=== PATIENT | female | born 1955 | race Two or more races ===

== ENCOUNTER → 2016-09-29 | Outpatient (CLI) | payer MEDICARE, MEDICAID ==
[~2016-09-29] MED LIST: ARIP1TAB15 PO; DIPH2.5T16 PO; DULO1CAP3 PO; OXYB5TAB61 OR; TRAZ150T79 PO
[2016-09-29 14:32] LABS: Basophils # (auto) 0 uL; Basophils % (auto) 0.6 % (0.0-2.0); Eosinophils # (auto) 0.1 uL; Hematocrit 43.4 % (36.0-46.0); Hemoglobin 14.1 g/dL (12.2-16.2); Lymphocytes # (auto) 1.9 uL; Lymphocytes % (auto) 29.2 % (10.0-50.0); Mean Corpuscular Hemoglobin 30.7 pg (28.0-32.0); Mean Corpuscular Hgb Conc. 32.5 g/dL (32.0-36.0); Mean Corpuscular Volume 94.4 fL (80.0-100.0); Monocytes # (auto) 0.4 uL; Neutrophils # (auto) 4.1 uL; Neutrophils % (auto) 63.2 % (37.0-80.0); Platelet Count (auto) 342 10^3/uL (140-450); Red Cell Distribution Width 14.4 % (11.6-16.0); White Blood Cell 6.5 10^3/uL (4.4-10.8)
[2016-09-29 14:42] LABS: Urine Bilirubin Negative (Negative); Urine Blood Negative /uL (Negative); Urine Color Yellow (Yellow); Urine Glucose Normal (Normal); Urine Ketone Negative (Negative); Urine Mucus FEW (None Seen); Urine Nitrite Negative (Negative); Urine RBC <1 /hpf (0 - 4); Urine Squamous Epithelial Cell FEW /hpf (<5); Urine Urobilinogen Normal (Negative); Urine pH 5.5 (5.0-8.0)
[2016-09-29 14:51] LABS: INR 0.97 (0.9-1.15); Partial Thromboplastin Time 25.8 sec (22.64-33.71)
[2016-09-29 15:01] LABS: Calcium 8.6 mg/dL (8.5-10.1); Potassium 3.9 mmol/L (3.5-5.1)
== END | disposition home or self-care (01) ==
LOC: LAB 10:27
PROVIDERS: ATTEND Urology
DX: N39.0 Urinary tract infection, site not specified (principal); M79.89 Other specified soft tissue disorders; D53.8 Other specified nutritional anemias; Z01.818 Encounter for other preprocedural examination
CPT/HCPCS: 36415; 80048; 81001; 85025; 85610; 85730; 87086

== ENCOUNTER 2016-10-01 06:11 | Day surgery (SDC) | payer MEDICARE, MEDICAID ==
[~2016-10-01] VITALS: Ht 162.6 cm; Wt 90.7 kg
[2016-10-01] MEDS ORDERED: ONABOTULINUMTOXINA 100 UNIT IM ONE (07:00)
[2016-10-01] MEDS ORDERED: LIDOCAINE 2% JELLY 11ml (GLYDO) ONE (07:03)
[2016-10-01] MEDS ORDERED: DEXAMETHASONE SOD PHOS 10MG/1ML VIAL INJ ONE (07:27)
[2016-10-01] MEDS ORDERED: fentaNYL CITRATE 100 MCG/2 ML VL ONE (07:27)
[2016-10-01] MEDS ORDERED: ONDANSETRON HCL 4 MG/2 ML VIAL ONE (07:27)
[2016-10-01] MEDS ORDERED: GLYCOPYRROLATE 0.2 MG/ML 1ML VIAL ONE (07:27)
[2016-10-01] MEDS ORDERED: KETOROLAC TROMETH 60MG/2ML VIAL IM ONE (07:27)
[2016-10-01] MEDS ORDERED: LIDOCAINE HCL 2 %PF INJ 10ML AMP IJ ONE (07:27)
[2016-10-01] MEDS ORDERED: MIDAZOLAM HCL 1MG/1ML-2 ML VIAL ONE (07:27)
[2016-10-01] MEDS ORDERED: PROPOFOL 10 MG/ML 20 ML IV ONE (07:27)
[2016-10-01] MEDS ORDERED: CIPROFLOXACIN 400MG/200ML 200 ML IV ONE (07:29)
[2016-10-01] MEDS ORDERED: ONDANSETRON HCL 4 MG/2 ML VIAL IV ONE (08:30)
[2016-10-01] MEDS ORDERED: HYDROmorphone HCL 2 MG/ML VL IV PRN (08:30)
[2016-10-01 09:34] VITALS: BP 133/90
== END 2016-10-01 09:34 | disposition home or self-care (01) ==
LOC: SUR 06:11
PROVIDERS: ATTEND Urology
DX: N36.42 Intrinsic sphincter deficiency (ISD) (principal); E66.9 Obesity, unspecified; F17.200 Nicotine dependence, unspecified, uncomplicated
CPT/HCPCS: 52287; J0744; J1100; J1885; J2250; J2405; J2704; J3010; J7030; L8606; J0585

== ENCOUNTER 2024-06-16 12:47 | Emergency (ER) | payer OTHER, MEDICAID ==
[~2024-06-16] VITALS: Ht 144.8 cm; Wt 40.2 kg
[~2024-06-16 12:47] MED LIST changes: -ARIP1TAB15 PO; +ARIP1TAB63 PO; -DIPH2.5T16 PO; -DULO1CAP3 PO; +DULO1CAP6 PO; +OXYB5TAB14 OR; -OXYB5TAB61 OR; -TRAZ150T79 PO; +TRAZ1TAB12 PO; +[UNRECOGNIZED DRUG - CODE] PO
--- NOTE | 2024-06-16 13:37 | DVH ---
EXAM: CT HEAD WITHOUT CONTRAST HISTORY: FALL COMPARISON: None TECHNIQUE: Axial images of the head were obtained and reformatted in coronal and sagittal planes. All CT scans at this medical facility are performed using dose modulation techniques as appropriate t o a performed exam including the following: Automated exposure control was utilized; adjustment of th e MA and/or KV according to patient size; and use of iterative reconstruction technique. CT Dose: CTDI volume is 59.25 mGy. Dose-length product is 949.73 mGy*cm FINDINGS: There is no evidence of acute intracranial hemorrhage, mass, mass effect midline shift. There is no h ydrocephalus or extra-axial fluid collection. There are patchy hypodense areas in the supratentorial white matter likely related to chronic microvascular ischemic changes. Hodges-white matter differentiat ion is maintained.. The visualized paranasal sinuses and mastoid air cells are clear. The calvarium is intact. IMPRESSION: 1. No acute intracranial process. HS:Y
--- NOTE | 2024-06-16 13:40 | ED.PDOC ---
Fina. trauma (HPI) HPI Comments A 69 YEAR OLD FEMALE PRESENTS TO THE ED WITH COMPLAINT OF HEAD INJURY AND LEFT FOOT PAIN STATUS POST FALL. PATIENT'S CAREGIVER STATES THE PATIENT HAS FALLEN 4 TIMES IN THE LAST 2 DAYS DUE TO HER CHRONIC LOWER BACK PAIN CAUSING HER LEGS TO GIVE OUT AND HIT HER HEAD EACH TIME SHE HAS FALLEN. PATIENT'S CAREGIVER REPORTS THE PATIENT ALSO TWISTED HER LEFT FOOT AND IS NOW COMPLAINING OF LEFT FOOT PAIN WITH MILD SWELLING. PATIENT DENIES LOC, NECK INJURY, FEVER, CHILLS, SHORTNESS OF BREATH, CHEST PAIN, ABDOMINAL PAIN, NAUSEA, VOMITING, HEADACHE, OR OTHER COMPLAINTS. NO OTHER SYMPTOMS OR MODIFYING FACTORS AT THIS TIME. PATIENT IS ALERT, ORIENTED X 4, AND HAS STEADY GAIT. Chief Complaint: Fall Injury Time Seen by MD: 12:50 Primary Care Provider: UNKNOWN Reviewed notes: Nurses Notes, Medications, Allergies Allergies: Coded Allergies: NO KNOWN ALLERGIES (Unverified , 09/29/16) Home Meds Reported Medications Diphenoxylate W/ Atropine (Diphenoxylate/Atropine 2.5-0.025 mg) 1 Tab Tab, 1 TAB PO DAILY, TAB 09/29/16 Duloxetine HCl (Duloxetine HCl) 60 Mg Cap, 60 MG PO BID, CAP 09/29/16 Aripiprazole (Aripiprazole) 30 Mg Tab, 30 MG PO DAILY, TAB 09/29/16 Oxybutynin Chloride (Oxybutynin Chloride) 5 Mg Tab, 5 MG OR BID, TAB 09/29/16 Trazodone Hcl (Trazodone Hcl) 150 Mg Tab, 1 TAB PO TID, #30 TAB 1 Refill 09/29/16 Information Source: Patient, Relative (Child) Mode of Arrival: Ambulatory Severity: Moderate Timing: Days Duration: Since onset, Days Prehospital treatment: None Location: (L) Foot, Head Location of laceration: None Mechanism: Fall Associated signs and symtoms: Headache Past Medical History PAST MEDICAL HISTORY: Anxiety, Depression, Schizophrenia Past Medical History (Other): DDD/CHRONIC LOWER BACK PAIN Surgical History (Other): LOW BACK SURGERY SENIOR BI ARCHITECT History: No Pertinent SENIOR BI ARCHITECT History Family History Family History: Reviewed,noncontributory to illness Social History Smoker: Non-Smoker Alcohol: Denies ETOH Use Drugs: Denies Drug Use Lives In: Home Constitutional: denies: chills, diaphoresis, fatigue, fever, malaise, sweats, weakness, others EENTM: denies: blurred vision, double vision, ear bleeding, ear discharge, ear drainage, ear pain, ear ringing, eye pain, eye redness, hearing loss, mouth pain, mouth swelling, nasal discharge, nose bleeding, nose congestion, nose pain, photophobia, tearing, throat pain, throat swelling, voice changes, others Respiratory: denies: cough, hemoptysis, orthopnea, SOB at rest, shortness of breath, SOB with excertion, stridor, wheezing, others Cardiovascular: denies: chest pain, dizzy spells, diaphoresis, Dyspnea on exertion, edema, irregular heart beat, left arm pain, lightheadedness, palpitations, PND, syncope, others Gastrointestinal: denies: abdomen distended, abdominal pain, blood streaked bowels, constipated, diarrhea, dysphagia, difficulty swallowing, hematemesis, melena, nausea, poor appetite, poor fluid intake, rectal bleeding, rectal pain, vomiting, others Genitourinary: denies: abnormal vagina bleeding, burning, dyspareunia, dysuria, flank pain, frequency, hematuria, incontinence, pain, , vagina dischar ge, urgency, others Neurological: reports: headache; denies: dizziness, fainting, left sided numbness, left sided weakness, numbness, paresthesia, pre-existing deficit, right sided numbness, right sided weakness, seizure, speech problems, tingling, tremors, weakness, others Musculoskeletal: reports: back pain (CHRONIC LOWER BACK PAIN), muscle pain, others (LEFT FOOT PAIN WITH MILD SWELLING); denies: gout, joint pain, joint swelling, muscle stiffness, neck pain Integumetry: reports: bruises (LEFT DORSAL FOOT. ); denies: change in color, change in hair/nails, dryness, laceration, lesions, lumps, rash, wounds, others Allergic/Immunocompromised: denies: Difficulty Healing, Frequent Infections, Hives, Itching, others Hematologic/Lymphatic: denies: anemia, blood clots, easy bleeding, easy bruising, swollen glands, others Endocrine: denies: excessive hunger, excessive sweating, excessive thirst, excessive urination, flushing, intolerance to cold, intolerance to heat, unexplained weight gain, unexplained weight loss, others Psychiatric: denies: anxiety, bipolar disorder, depression, hopeless, panic disorder, schizophrenia, sleepless, suicidal, others All Other Systems: Reviewed and Negative Physical Exam General Appearance: No Apparent Distress, Obese HEENT: Head (NO SCALP CONTUSIONS AND HEMATOMAS, NO DEFORMITY OF SCALP. ), Normal ENT Inspection, PERRL/EOMI, Pharynx Normal, TMs Normal Neck: Full Range of Motion, Non-Tender, Normal, Normal Inspection Respiratory: Chest Non-Tender, Lungs Clear, No Accessory Muscle Use, No R espiratory Distress, Normal Breath Sounds Cardiovascular: No Edema, No JVD, No Murmur, No Gallop, Normal Peripheral Pulses, Regular Rate/Rhythm Breast Exam: Deferred Gastrointestinal: No Organomegaly, Non Tender, No Pulsatile Mass, Normal Bowel Sounds, Soft Genitalia: Deferred Pelvic: Deferred Rectal: Deferred Extremities: Decreased range of motion, No calf tenderness, Normal capillary refill, No pedal edema, Swelling (BONY TENDERNESS AND SWELLING ON LEFT DORSAL FOOT, NO DEFORMITY. ), Tender (BONY TENDERNESS AND SWELLING ON LEFT FOOT. ) Musculoskeletal : Location: Bilateral Extremity Location: Back Apperance: Tenderness (NO BONY TENDERNESS, SWELLING AND REDNESS ON LOW BACK, NO DEFORMITY. ) Neurologic: Alert, science job titles II-XII nml as Tested, No Motor Deficits, Normal Affect, Normal Mood, No Sensory Deficits Cerebellar Function: Normal Reflexes: Normal Skin: Bruises (LEFT DORSAL FOOT. ), Dry, Normal Color, Warm Peripheral Pulses: 2+ carotid (R), 2+ carotid (L), 2+ dorsalis pedis (R), 2+ dorsalis pedis (L) Lymphatic: No Adenopathy Was a procedure done? Was a procedure done?: No Differential Diagnosis Multiple Trauma: Closed Head Injury, Fractures, Cerebral Contusion, Abrasions, Contusion, Other (SPRAIN OF LEFT FOOT) Neck Injury: N/A X-Ray, Labs, Meds, VS Vital Signs Date Time Temp Pulse Resp B/P (MAP) Pulse Ox O2 Delivery O2 Flow Rate FiO2 06/16/24 14:26 97.8 67 18 122/53 (76) 99 97.8 06/16/24 14:26 67 18 99 Room Air 06/16/24 12:56 97.8 67 18 122/53 (76) 99 EXAM: CT HEAD WITHOUT CONTRAST HISTORY: FALL COMPARISON: None TECHNIQUE: Axial images of the head were obtained and reformatted in coronal and sagittal p lanes. All CT scans at this medical facility are performed using dose modulation techniques as appropriate to a performed exam including the following: Automated exposure control was utilized; adjustment of the MA and/or KV according to patient size; and use of iterative reconstruction technique. CT Dose: CTDI volume is 59.25 mGy. Dose-length product is 949.73 mGy*cm FINDINGS: There is no evidence of acute intracranial hemorrhage, mass, mass effect midline shift. There is no hydrocephalus or extra-axial fluid collection. There are patchy hypodense areas in the supratentorial white matter likely related to chronic microvascular ischemic changes. Hodges-white matter differentiation is maintained.. The visualized paranasal sinuses and mastoid air cells are clear. The calvarium is intact. IMPRESSION: 1. No acute intracranial process. 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 There are no comparison studies available. Possible transitional lumbosacral anatomy with sacralization at S5. Lumbar levocurvature. Trace anterolisthesis of L4/L5. Moderate degenerative disc changes are seen at L2-L3 and L5-S1. Multilevel facet arthropathy. Age-indeterminate compression deformity of the L3 vertebral body. The vertebral body is irregular in appearance and the screws may project beyond the cortex. Status post L3-L5 PSIF. Interbody spacer is noted at L4-L5. The hardware appears intact. Partial visualization of a pulse generator device with a single lead ending in the pelvis. Surgical clips in the right upper quadrant. Atherosclerosis is seen in the abdominal aorta. 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 L1 will be regarded as the 1st iqd-fbh-gloardc vertebra in this report. There is possible transitional lumbosacral anatomy with sacralization at L5. 1. Age-indeterminate compression fracture of the L3 vertebral body. Recommend comparison with prior studies if they are available. Otherwise consider correlation with CT. 2. Status post L3-L5 PSIF with an L4-L5 interbody spacer. The hardware appears intact. ATED BY: JOSE LUIS KUMAR DO DICTATED DATE/TIME: 06/16/241357 SIGNED BY: JOSE LUIS KUMAR DO SIGNED DATE/TIME: 06/16/241357 CC: CLINICAL INDICATION: FALL TECHNIQUE: 3 radiographic views of the left foot were obtained. Comparison: None FINDINGS/IMPRESSION: There is Lisfranc fracture dislocation of the foot of unknown chronicity. Recommend clinical correlation. There is postsurgical changes of the distal tibia and fibula. Small posterior and plantar calcaneal bony spurs. There is soft tissue edema of the foot. ATED BY: DENA CHOWDHURY DO DICTATED DATE/TIME: 06/16/241353 SIGNED BY: DENA CHOWDHURY DO SIGNED DATE/TIME: 06/16/241353 CC: X-Ray, Labs, Meds, VS Comment EXTERNAL NOTES: NONE LABS ORDERED: NONE REVIEWED AND INTERPRETED RESULTS: NONE IMAGING ORDERED: CT BRAIN, XR FOOT LT, XR L-SPINE INDEPENDENT HISTORIANS: PATIENT'S DAUGHTER. TREATMENT: POSTERIOR SPLINT APPLIED TO PATIENT'S LEFT FOOT. NORCO 5/325MG PO PATIENT'S CASE AND RESULTS HAVE BEEN DISCUSSED WITH THE ED ATTENDING PHYSICIAN AND THEY AGREE WITH MY PLAN OF CARE. I HAVE DISCUSSED IMAGING RESULTS WITH THE PATIENT AND HER DAUGHTER AND HAVE INSTRUCTED THEM TO FOLLOW UP WITH THEIR PCP IN 1-2 DAYS. THE PATIENT FULLY UNDERSTANDS THEIR RESULTS AND ARE AWARE THEY NEED TO FOLLOW UP WITH THEIR PCP FOR FURTHER EVALUATION IF THEIR SYMPTOMS PERSIST. Images Reviewed?: Images reviewed and evaluated by me Time of 1ST Reevaluation: 15:12 Reevaluation 1ST: Improved Patient Education/Counseling: Diagnosis, Treatment, Need For Follow Up Family Education/Counseling: Diagnosis, Treatment, Need For Follow Up Medical Screening: No EMC Exist At This Time Departure 1 Departure Time of Disposition: 15:12 Impression: Primary Impression: Acute headache Qualified Codes: G44.319 - Acute post-traumatic headache, not intractable Additional Impressions: Lisfranc fracture Status post fall Chronic low back pain Qualified Codes: M54.42 - Lumbago with sciatica, left side; M54.41 - Lumbago with sciatica, right side; G89.29 - Other chronic pain Disposition: 01 HOME / SELF CARE / HOMELESS Condition: Stable Additional Instructions: FOLLOW-UP WITH PCP IN 1 TO 2 DAYS. TAKE MEDICATIONS PRESCRIBED. RETURN TO ED FOR ANY NEW OR WORSENING SYMPTOMS. Discharged With: Self, Relative Critical Care Note Critical Care Time?: No Stability Stability form required: No I personally scribed for SHAMAR GOODMAN ([email or web address]) on 06/16/24 at 13:40. Electronically submitted by Manny Ibarra ([email or web address]). I personally scribed for SHAMAR GOODMAN ([email or web address]) on 06/16/24 at 13:42. Electronically submitted by Manny Ibarra ([email or web address]). I personally scribed for SHAMAR GOODMAN ([email or web address]) on 06/16/24 at 14:40. Electronically submitted by Manny Ibarra ([email or web address]). SHAMAR GOODMAN Jun 16, 2024 13:40
--- NOTE | 2024-06-16 13:56 | DVH ---
CLINICAL INDICATION: FALL TECHNIQUE: 3 radiographic views of the left foot were obtained. Comparison: None FINDINGS/IMPRESSION: There is Lisfranc fracture dislocation of the foot of unknown chronicity. Recommend clinical correlat ion. There is postsurgical changes of the distal tibia and fibula. Small posterior and plantar calcaneal bony spurs. There is soft tissue edema of the foot.
--- NOTE | 2024-06-16 14:00 | DVH ---
INDICATION: FALL COMPARISON: None TECHNIQUE: 4 views of the lumbar spine FINDINGS: There appear to be hypoplastic ribs at what is going to be referred to as T12 for the purposes of thi s report. There are no comparison studies available. Possible transitional lumbosacral anatomy with s acralization at S5. Lumbar levocurvature. Trace anterolisthesis of L4/L5. Moderate degenerative disc changes are seen at L2-L3 and L5-S1. Multilevel facet arthropathy. Age-indeterminate compression deformity of the L3 vertebral body. The vertebral body is irregular in appearance and the screws may project beyond the cortex. Status post L3-L5 PSIF. Interbody spacer is noted at L4-L5. The hardware appears intact. Partial visualization of a pulse generator device with a single lead ending in the pelvis. Surgical c lips in the right upper quadrant. Atherosclerosis is seen in the abdominal aorta. 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 L1 will be regarded as the 1st noy-zlt-acacmfj vertebra in this rep ort. There is possible transitional lumbosacral anatomy with sacralization at L5. 1. Age-indeterminate compression fracture of the L3 vertebral body. Recommend comparison with prior s tudies if they are available. Otherwise consider correlation with CT. 2. Status post L3-L5 PSIF with an L4-L5 interbody spacer. The hardware appears intact.
[2024-06-16 14:26] VITALS: BP 122/53; PULSE 67; RESP 18; TEMP 97.8; O2SAT 99
[2024-06-16] MEDS: HYDROcodone-ACET 5/325MG TAB PO ONE (15:14)
== END 2024-06-16 15:18 | disposition home or self-care (01) ==
LOC: ER 12:47
DX: S92.812A Other fracture of left foot, initial encounter for closed fracture (principal); R51.9 Headache, unspecified; G89.29 Other chronic pain; M54.50 Low back pain, unspecified; F41.9 Anxiety disorder, unspecified; F32.A Depression, unspecified; F20.9 Schizophrenia, unspecified; Z79.899 Other long term (current) drug therapy; W18.39XA Other fall on same level, initial encounter; Y93.89 Activity, other specified; Y92.89 Other specified places as the place of occurrence of the external cause; Y99.8 Other external cause status
CPT/HCPCS: 29515; 70450; 72100; 73630

== ENCOUNTER 2025-06-22 10:19 | Inpatient (IN) | payer OTHER, MEDICAID ==
[~2025-06-22] VITALS: Ht 162.6 cm; Wt 119.5 kg
--- NOTE | 2025-06-22 10:55 | ED.PDOC ---
Fina. trauma (HPI) HPI Comments This is a 70 year old female BIB caregiver presenting to the ED with chief complaint of frequent falls. Patient's caregiver reports that the patient has been having very frequent falls over the past 3-4 days, falling a total of 5 times. Caregiver relays that the patient was evaluated by the nurses at [facility] and patient was noted to have swelling and pain to her bilateral knees. Caregiver states she is bringing in the patient due to all the falls being unwitnessed and they are unsure if she hit her head as patient has no complaints at this time. Patient has history of dementia and bilateral knee surgery for previous fractures. Chief Complaint: Fall Injury Time Seen by MD: 10:52 Primary Care Provider: UNKNOWN Reviewed notes: Nurses Notes, Medications, Allergies Allergies: Coded Allergies: NO KNOWN ALLERGIES (Unverified , 09/29/16) Home Meds Reported Medications Diphenoxylate W/ Atropine (Diphenoxylate/Atropine 2.5-0.025 mg) 1 Tab Tab, 1 TAB PO DAILY, TAB 09/29/16 Duloxetine HCl (Duloxetine HCl) 60 Mg Cap, 60 MG PO BID, CAP 09/29/16 Aripiprazole (Aripiprazole) 30 Mg Tab, 30 MG PO DAILY, TAB 09/29/16 Oxybutynin Chloride (Oxybutynin Chloride) 5 Mg Tab, 5 MG OR BID, TAB 09/29/16 Trazodone Hcl (Trazodone Hcl) 150 Mg Tab, 1 TAB PO TID, #30 TAB 1 Refill 09/29/16 Information Source: Patient, Electric Refrigerator Servicer Mode of Arrival: Wheelchair Severity: Moderate Timing: Days Duration: Since onset Prehospital treatment: None Location: (L) Knee, (R) Knee, (L) Leg, (R) Leg Mechanism: Fall Past Medical History PAST MEDICAL HISTORY: Anxiety, Dementia, Depression, Schizophrenia Surgical History (Other): Bilateral knee surgery, Back surgery GOVERNMENT AFFAIRS MANAGER History: No Pertinent GOVERNMENT AFFAIRS MANAGER History Family History Family History: Reviewed,noncontributory to illness Social History Smoker: Non-Smoker Alcohol: Denies ETOH Use Drugs: Denies Drug Use Lives In: Assisted Care, [facility] Constitutional: denies: chills, diaphoresis, fatigue, fever, malaise, sweats, weakness, others EENTM: denies: blurred vision, double vision, ear bleeding, ear discharge, ear drainage, ear pain, ear ringing, eye pain, eye redness, hearing loss, mouth pain, mouth swelling, nasal discharge, nose bleeding, nose congestion, nose pain, photophobia, tearing, throat pain, throat swelling, voice changes, others Respiratory: denies: cough, hemoptysis, orthopnea, SOB at rest, shortness of breath, SOB with excertion, stridor, wheezing, others Cardiovascular: denies: chest pain, dizzy spells, diaphoresis, Dyspnea on exertion, edema, irregular heart beat, left arm pain, lightheadedness, palpitati ons, PND, syncope, others Gastrointestinal: denies: abdomen distended, abdominal pain, blood streaked bowels, constipated, diarrhea, dysphagia, difficulty swallowing, hematemesis, melena, nausea, poor appetite, poor fluid intake, rectal bleeding, rectal pain, vomiting, others Genitourinary: denies: abnormal vagina bleeding, burning, dyspareunia, dysuria, flank pain, frequency, hematuria, incontinence, pain, , vagina discharge, urgency, others Neurological: denies: dizziness, fainting, headache, left sided numbness, left sided weakness, numbness, paresthesia, pre-existing deficit, right sided numbness, right sided weakness, seizure, speech problems, tingling, tremors, weakness, others Musculoskeletal: reports: joint pain; denies: back pain, gout, joint swelling, muscle pain, muscle stiffness, neck pain, others Integumetry: denies: bruises, change in color, change in hair/nails, dryness, laceration, lesions, lumps, rash, wounds, others Allergic/Immunocompromised: denies: Difficulty Healing, Frequent Infections, Hives, Itching, others Hematologic/Lymphatic: denies: anemia, blood clots, easy bleeding, easy bruising, swollen glands, others Endocrine: denies: excessive hunger, excessive sweating, excessive thirst, excessive urination, flushing, intolerance to cold, intolerance to heat, unexplained weight gain, unexplained weight loss, others Psychiatric: denies: anxiety, bipolar disorder, depression, hopeless, panic dis order, schizophrenia, sleepless, suicidal, others All Other Systems: Reviewed and Negative Physical Exam General Appearance: No Apparent Distress, Normal, Other (Pleasantly confused) HEENT: Normal ENT Inspection, Pharynx Normal, TMs Normal Neck: Full Range of Motion, Non-Tender, Normal, Normal Inspection Respiratory: Chest Non-Tender, Lungs Clear, No Accessory Muscle Use, No Respiratory Distress, Normal Breath Sounds Cardiovascular: No Edema, No JVD, No Murmur, No Gallop, Normal Peripheral P ulses, Regular Rate/Rhythm Breast Exam: Deferred Gastrointestinal: No Organomegaly, Non Tender, No Pulsatile Mass, Normal Bowel Sounds, Soft Genitalia: Deferred Pelvic: Deferred Rectal: Deferred Extremities: No calf tenderness, Normal capillary refill, Other (Bilateral leg swelling) Musculoskeletal : Apperance: Normal Neurologic: Alert, passementerie worker II-XII nml as Tested, No Motor Deficits, Normal Affect, Normal Mood, No Sensory Deficits Cerebellar Function: Normal Reflexes: Normal Skin: Dry, Normal Color, Warm Lymphatic: No Adenopathy Was a procedure done? Was a procedure done?: No EKG EKG : Pulse Rate (adult): 87 [place]: Normal Cardiac Rhythm: NSR Differential Diagnosis Multiple Trauma: Closed Head Injury, Fractures, Contusion X-Ray, Labs, Meds, VS Vital Signs Date Time Temp Pulse Resp B/P (MAP) Pulse Ox O2 Delivery O2 Flow Rate FiO2 06/22/25 13:19 97.6 97 16 124/75 (91) 94 97.6 06/22/25 10:55 87 06/22/25 10:41 87 06/22/25 10:22 97.3 89 18 132/67 97 97.3 Lab Test 06/22/25 12:55 06/22/25 12:12 06/22/25 11:20 06/22/25 10:32 Range/Units Troponin I High Sensitivity 15 14 </=34 ng/L Urine Color Light-yellow Yellow Urine Clarity Clear Clear Urine pH 6.0 5.0-9.0 Urine Specific [place] 1.013 1.001-1.035 Urine Protein Negative Negative Urine Ketones Negative Negative Urine Blood Negative Negative /uL Urine Nitrite Negative Negative Urine Bilirubin Negative Negative Urine Urobilinogen Normal Negative mg/dL Urine Leukocyte Esterase Negative Negative /uL Urine RBC <1 0 - 4 /hpf Urine Microscopic WBC 1 0-5 /HPF Urine Squamous Epithelial Cells Few <5 /hpf Urine Bacteria Few H None Seen /hpf Urine Glucose Normal Normal mg/dL White Blood Count 10.1 4.4-10.8 10^3/uL Red Blood Count 4.29 4.0-5.20 10^6/uL Hemoglobin 13.2 12.2-16.2 g/dL Hematocrit 40.0 36.0-46.0 % Mean Corpuscular Volume 93.4 80.0-100.0 fL Mean Corpuscular Hemoglobin 30.7 28.0-32.0 pg Mean Corpuscular Hemoglobin Concent 32.9 32.0-36.0 g/dL Red Cell Distribution Width 14.8 H 11.8-14.3 % Platelet Count 370 140-450 10^3/uL Mean Platelet Volume 7.3 6.9-10.8 fL Neutrophils (%) (Auto) 68.2 37.0-80.0 % Lymphocytes (%) (Auto) 17.7 10.0-50.0 % Monocytes (%) (Auto) 10.1 0.0-12.0 % Eosinophils (%) (Auto) 3.0 0.0-7.0 % Basophils (%) (Auto) 1.0 0.0-2.0 % Neutrophils # (Auto) 6.9 1.6-8.6 10 ^3/uL Lymphocytes # (Auto) 1.8 0.4-5.4 10 ^3/uL Monocytes # (Auto) 1.0 0-1.3 10 ^3/uL Eosinophils # (Auto) 0.3 0-0.8 10 ^3/uL Basophils # (Auto) 0.1 0-0.2 10 ^3/uL Nucleated Red Blood Cells 0.0 % Sodium Level 139 136-145 mmol/L Potassium Level 4.3 3.5-5.1 mmol/L Chloride Level 103 98-107 mmol/L Carbon Dioxide Level 26 20-31 mmol/L Anion Gap 10 5-15 Blood Urea Nitrogen 9 9-23 mg/dL Creatinine 1.07 H 0.550-1.02 mg/dL Glomerular Filtration Rate Calc 56 >90 mL/min BUN/Creatinine Ratio 8.4 L 10.0-20.0 Serum Glucose 95 74-106 mg/dL Calcium Level 9.6 8.7-10.4 mg/dL POC Glucose 89 70-106 mg/dl Time of 1ST Reevaluation: 11:50 Reevaluation 1ST: Unchanged Patient Education/Counseling: Diagnosis, Treatment Family Education/Counseling: Diagnosis, Treatment Departure 1 Departure Time of Disposition: 14:37 (With frequent falls and concerning for syncopal episode. We will admit patient for further workup and expert consultation) Impression: Primary Impression: Syncope and collapse Additional Impression: Frequent falls Disposition: ADMITTED INPATIENT Admit to: Med Surg Condition: Guarded Critical Care Note Critical Care Time?: Yes (35 min-critical care time only) Stability Stability form required: No Heart Score Heart Score: Heart Score Response (Comments) Value History N/A 0 EKG N/A 0 Age N/A 0 Risk Factors N/A 0 Troponin N/A 0 Total 0 I personally scribed for ALEENA COLBERT MD ([email or web address]) on 06/22/25 at 10:55. Electronically submitted by Serafin Jenkins ([email or web address]). ALEENA COLBERT MD Jun 22, 2025 10:55
[2025-06-22 11:37] LABS: Hematocrit 40.0 % (36.0-46.0); Hemoglobin 13.2 g/dL (12.2-16.2); Mean Corpuscular Hemoglobin 30.7 pg (28.0-32.0); Mean Corpuscular Volume 93.4 fL (80.0-100.0); Nucleated Red Blood Cells % 0.0 %
--- NOTE | 2025-06-22 11:37 | DVH ---
EXAM: CT HEAD WITHOUT CONTRAST INDICATION: syncope TECHNIQUE: CT of the head without intravenous contrast. Coronal and sagittal reformatted images are submitted. Radiation Dose : 1. Head: CT Dose: CTDI volume is 66.37 mGy. Dose-length product is 1256.1 mGy*cm The dose indicators for CT are the volume Computed Tomography (CT) Dose Index (CTDIvol) and the Dose Length Product (DLP), and are measured in units of mGy and mGy-cm, respectively. These indicators are not patient dose, but values generated from the CT scanner acquisition factors. The report includes radiation exposure data for exposures received during this examination. All CT scans at this medical facility are performed using dose modulation techniques as appropriate to a performed exam including the following: Automated exposure control was utilized; adjustment of the MA and/or KV according to patient size; and use of iterative reconstruction technique. COMPARISON: CT HEAD WITHOUT CONTRAST on DOS: 06/16/24 FINDINGS: There is no evidence of acute intracranial hemorrhage, extra-axial collection, mass effect, midline shift, herniation or hydrocephalus. The ventricles, sulci and cisterns are age appropriate. The reyes-white differentiation is intact. The visualized paranasal sinuses and mastoid air cells are clear. No depressed calvarial fracture. The surrounding soft tissues are unremarkable. IMPRESSION: 1. No acute intracranial abnormality.
--- NOTE | 2025-06-22 11:38 | DVH ---
CHEST RADIOGRAPH Indication: syncope Technique: Single frontal view of the chest was obtained COMPARISON: CR CHEST 2 VIEW on DOS: 02/07/24 FINDINGS: Lines and Tubes: None Lungs: Increased interstitial prominence. This may represent pulmonary vascular congestion and/or viral pneumonia. Pleura: No effusion. No pneumothorax. Cardiomediastinal contours: Unremarkable Bones: Unremarkable IMPRESSION: Increased interstitial prominence. This may represent pulmonary vascular congestion and/or viral pneumonia.
[2025-06-22 11:41] LABS: Chloride 103 mmol/L (98-107); Potassium 4.3 mmol/L (3.5-5.1); Sodium 139 mmol/L (136-145)
[2025-06-22 11:42] LABS: Anion Gap 10 (5-15); Carbon Dioxide 26 mmol/L (20-31)
[2025-06-22 11:43] LABS: Calcium 9.6 mg/dL (8.7-10.4)
[2025-06-22 11:47] LABS: BUN/Creatinine Ratio 8.4 (10.0-20.0); Glucose 95 mg/dL (74-106)
[2025-06-22 12:05] LABS: Blood Urea Nitrogen 9 mg/dL (9-23)
[2025-06-22 12:27] LABS: Urine Protein, UAD Negative (Negative)
[2025-06-22] MEDS ORDERED: DOCUSATE SOD 100 MG CAP PO PRN (15:30)
--- NOTE | 2025-06-22 15:45 | DVHHP2 ---
History of Present Illness History of Present Illness 70-year-old female with past medical history of anxiety, dementia, bipolar disorder, back surgery, and bilateral knee surgery, brought by her caregiver from an assisted living facility due to recurrent falls. The caregiver reports that the patient rarely communicates symptoms and has been found on the floor multiple times when going to the bathroom or trying to get out of bed. She estimates around five falls in the past week, though falls have been occurring frequently for longer. The patient endorses bilateral leg swelling and right knee pain. She denies chest pain, dizziness, shortness of breath, or palpitations. In the ED, head CT showed no acute abnormality. Chest X-ray demonstrated pulmonary congestion with possible viral pneumonia, though the patient remains afebrile, hemodynamically stable, and without oxygen requirements. CBC unremarkable. CMP notable for creatinine 1.07 with GFR 56 consistent with mild MIGUEL A. Urinalysis negative. Glucose 95. EKG sinus rhythm without ischemia. Troponins negative. Caregiver reports multiple psychotropic medications including fluoxetine, rexulti, ziprasidone, and donepezil, raising concern for polypharmacy contributing to falls. PMHx Anxiety, dementia, bipolar disorder. PSHx Back surgery, bilateral knee surgery. Social History Lives in an assisted living facility. She smokes vape and was a heavy smoker of cigarettes for years ROS No additional complaints beyond what is described in HPI. Review of Systems Allergies: Coded Allergies: NO KNOWN ALLERGIES (Unverified , 09/29/16) Medications Current Medications Medications Dose Ordered Sig/Tiffanie Route Start Time Stop Time Status Last Admin Dose Admin Docusate Sodium 100 mg BIDPRN PRN PO 06/22/25 15:30 Acetaminophen 650 mg Q6HP PRN PO 06/22/25 15:30 Enoxaparin Sodium 40 mg DAILY SC 06/23/25 10:00 Exam Vital Signs Vital Signs Date Time Temp Pulse Resp B/P (MAP) Pulse Ox O2 Delivery O2 Flow Rate FiO2 06/22/25 13:19 97.6 97 16 124/75 (91) 94 97.6 Exam General: Alert, no acute distress. HEENT: Normocephalic, atraumatic. Cardiac: Regular rate and rhythm. Lungs: Clear to auscultation. Abdomen: Soft, nontender. Extremities: Bilateral leg edema, right knee tenderness. Neuro: No focal deficits; baseline cognitive impairment. Skin: Intact. Labs/Xrays Labs Test 06/22/25 14:39 06/22/25 12:12 06/22/25 11:20 06/22/25 10:32 Range/Units Troponin I High Sensitivity 13 </=34 ng/L Urine Color Light-yellow Yellow Urine Clarity Clear Clear Urine pH 6.0 5.0-9.0 Urine Specific [place] 1.013 1.001-1.035 Urine Protein Negative Negative Urine Ketones Negative Negative Urine Blood Negative Negative /uL Urine Nitrite Negative Negative Urine Bilirubin Negative Negative Urine Urobilinogen Normal Negative mg/dL Urine Leukocyte Esterase Negative Negative /uL Urine RBC <1 0 - 4 /hpf Urine Microscopic WBC 1 0-5 /HPF Urine Squamous Epithelial Cells Few <5 /hpf Urine Bacteria Few H None Seen /hpf Urine Glucose Normal Normal mg/dL White Blood Count 10.1 4.4-10.8 10^3/uL Red Blood Count 4.29 4.0-5.20 10^6/uL Hemoglobin 13.2 12.2-16.2 g/dL Hematocrit 40.0 36.0-46.0 % Mean Corpuscular Volume 93.4 80.0-100.0 fL Mean Corpuscular Hemoglobin 30.7 28.0-32.0 pg Mean Corpuscular Hemoglobin Concent 32.9 32.0-36.0 g/dL Red Cell Distribution Width 14.8 H 11.8-14.3 % Platelet Count 370 140-450 10^3/uL Mean Platelet Volume 7.3 6.9-10.8 fL Neutrophils (%) (Auto) 68.2 37.0-80.0 % Lymphocytes (%) (Auto) 17.7 10.0-50.0 % Monocytes (%) (Auto) 10.1 0.0-12.0 % Eosinophils (%) (Auto) 3.0 0.0-7.0 % Basophils (%) (Auto) 1.0 0.0-2.0 % Neutrophils # (Auto) 6.9 1.6-8.6 10 ^3/uL Lymphocytes # (Auto) 1.8 0.4-5.4 10 ^3/uL Monocytes # (Auto) 1.0 0-1.3 10 ^3/uL Eosinophils # (Auto) 0.3 0-0.8 10 ^3/uL Basophils # (Auto) 0.1 0-0.2 10 ^3/uL Nucleated Red Blood Cells 0.0 % Sodium Level 139 136-145 mmol/L Potassium Level 4.3 3.5-5.1 mmol/L Chloride Level 103 98-107 mmol/L Carbon Dioxide Level 26 20-31 mmol/L Anion Gap 10 5-15 Blood Urea Nitrogen 9 9-23 mg/dL Creatinine 1.07 H 0.550-1.02 mg/dL Glomerular Filtration Rate Calc 56 >90 mL/min BUN/Creatinine Ratio 8.4 L 10.0-20.0 Serum Glucose 95 74-106 mg/dL Calcium Level 9.6 8.7-10.4 mg/dL POC Glucose 89 70-106 mg/dl SEPSIS Sepsis Screen Date sepsis recognized/suspect: Jun 22, 2025 Time Sepsis recognized/suspect: 1024 Recent Procedure: No On Antibiotic Therapy: No Respiratory Rate >20: No Heart Rate >90: No Temp<36 C (96.8 F) or >38.3 C: No SBP <90 or MAP <65 mmHG: No New Acute Mental Status Change: No Is the patient on CPAP, BIPAP,: Yes Physician Orders Electrocardigram (06/22/25 10:47) Chest Portable (06/22/25 10:52) Head Without Contrast (06/22/25 10:52) Electrocardigram (06/22/25 11:52) Electrocardigram (06/22/25 13:52) Admit (06/22/25 15:21) Code Status (06/22/25 15:21) Vital Signs .PER UNIT PROTOCOL (06/22/25 15:21) Review Orders With Adm. (06/22/25 15:21) Consistent Carb(Ccho)Diabetes (06/22/25 Dinner) Docusate Sodium Capsule (Colace Capsule) (06/22/25 15:30) Acetaminophen Tablet (Tylenol Tablet) (06/22/25 15:30) Notify Md Of Changes From Base (06/22/25 15:21) Advance Directive (06/22/25 15:21) Echo 2d Mode Cardiac Dop (06/22/25 15:21) Patient Condition (06/22/25 15:21) Allergies (06/22/25 15:21) Enoxaparin Sodium (Lovenox) (06/23/25 10:00) Oxygen By Nasal Cannula (06/22/25 15:21) Stat Ekg For Chest Pain (06/22/25 15:21) Notify Md Of Changes From Base (06/22/25 15:21) Assisted Living Housekeeper For 24 Hours (06/22/25 15:21) Emergency Dysrhythmia Protocol (06/22/25 15:21) Rhythm Strips Once Every Shift (06/22/25 15:21) R Knee 2v Xray (06/22/25 15:21) Bilat Lower Dvt (06/22/25 15:21) Carotid Duplx W Color Dop (06/22/25 15:21) C-Reactive Protein (06/22/25 15:21) Drug Screen (06/22/25 15:21) B-Type Natriuretic Peptide (06/22/25 15:29) Sodium Chloride 0.9% (06/22/25 15:30) Pt Request For Service (06/22/25 15:32) Vital Signs Date Time Temp Pulse Resp B/P (MAP) Pulse Ox O2 Delivery O2 Flow Rate FiO2 06/22/25 13:19 97.6 97 16 124/75 (91) 94 97.6 06/22/25 10:55 87 06/22/25 10:41 87 06/22/25 10:22 97.3 89 18 132/67 97 97.3 Laboratory Tests Test 06/22/25 11:20 White Blood Count 10.1 10^3/uL (4.4-10.8) Assessment/Plan Assessment/Plan # Recurrent falls Likely multifactorial related to dementia, impaired mobility, and psychotropic polypharmacy. Plan includes fall precautions, PT evaluation, orthostatic vitals, telemetry, and review of all psych meds with temporary holding of nonessential agents. # Syncope Etiology unclear. Head CT and EKG reassuring. Troponins negative. Will complete workup with carotid ultrasound, echocardiogram, BNP, CRP, UDS, and orthostatics while on telemetry. # Pulmonary congestion Chest X-ray suggests congestion versus viral infection. No fever or hypoxia. Monitor respiratory exam, inflammatory markers, and clinical course; defer antibiotics unless new findings develop. # Bilateral lower-extremity edema May reflect venous insufficiency or cardiac causes. Order bilateral venous Dopplers and echocardiogram. # Right knee pain Likely musculoskeletal. Obtain knee X-ray and involve PT for gait evaluation. # Mild acute kidney injury Creatinine mildly elevated. Most likely prerenal or medication-related. Encourage gentle hydration, avoid nephrotoxins, repeat BMP. # Dementia, bipolar disorder, anxiety Polypharmacy may be contributing to instability; review and adjust regimen. Psychiatry consult if needed. #COPD No symptoms #Tobacco use Counseling about quitting Case discussed with Dr Antonio Full code Plan discussed with: Patient, Other (rn) My Orders Orders - ARISTIDES SALVADOR RESIDENT Procedure Category Date Status Time Admit ADMIT 06/22/25 Transmitted 15:21 Code Status CODE 06/22/25 Transmitted 15:21 Vital Signs [facility] 06/22/25 In Process 15:21 Review Orders With [facility] 06/22/25 In Process Adm. 15:21 Consistent DIET 06/22/25 Transmitted Carb(Ccho)Diabetes Dinner Docusate Sodium PHA 06/22/25 In Process Capsule (Colace 15:30 Acetaminophen Tablet PHA 06/22/25 In Process (Tylenol Tablet) 15:30 Notify Of Changes [facility] 06/22/25 In Process From Base 15:21 Advance Directive [facility] 06/22/25 In Process 15:21 Echo 2d Mode Cardiac US 06/22/25 Logged DOP 15:21 Patient Condition ORDERS 06/22/25 Transmitted 15:[address] [facility] 06/22/25 In Process 15:21 Enoxaparin Sodium [facility] 06/23/25 In Process (Lovenox) 10:00 Oxygen By Nasal RT 06/22/25 Transmitted Cannula 15:21 Stat Ekg For Chest [facility] 06/22/25 In Process Pain 15:21 Notify Of Changes [facility] 06/22/25 In Process From Base 15:21 Assisted Living Housekeeper For [facility] 06/22/25 In Process 24 Hours 15:21 Emergency Dysrhythmia [facility] 06/22/25 In Process Protocol 15:21 Rhythm Strips Once [facility] 06/22/25 In Process Every Shift 15:21 R Knee 2v Xray XY 06/22/25 Logged 15:21 Bilat Lower Dvt US 06/22/25 Logged 15:21 Carotid Duplx W Color US 06/22/25 Logged DOP 15:21 C-Reactive Protein LAB 06/22/25 Logged 15:21 Drug Screen LAB 06/22/25 Logged 15:21 B-Type Natriuretic LAB 06/22/25 Logged Peptide 15:29 Sodium Chloride 0.9% PHA 06/22/25 In Process 15:30 Pt Request For Service PT 06/22/25 Logged 15:32 Date of Service: Jun 22, 2025 Billing Provider: WOOD ANTONIO MD Common Visit Codes: [id number] INP/OBS CARE (HIGH) Secondary Visit Codes: [id number] CARE PLAN 30 MINUTES ARISTIDES SALVADOR RESIDENT Jun 22, 2025 15:45
--- NOTE | 2025-06-22 16:08 | DVH ---
EXAM: XY R KNEE 2V XRAY HISTORY: knee trauma COMPARISON: For reasons unknown, radiographs of the right knee dated 10/11/2024 were not made available on the PACS system for viewing. TECHNIQUE: AP and cross-table lateral views of the right knee were performed. FINDINGS: No acute fracture is identified about the right knee. There is mild medial compartment joint space narrowing. Probable small to Moderate joint effusion. IMPRESSION: 1. No acute fracture of the right knee. 2. Mild degenerative changes of the medial compartment. 3. Probable small to moderate right knee effusion. If internal derangement is suspected, consider follow-up noncontrast MRI of the right knee for further evaluation.
--- NOTE | 2025-06-22 17:01 | DVH ---
CLINICAL HISTORY: rule out stenosis TECHNIQUE: Hodges-scale, Color and Duplex Doppler imaging of the bilateral carotid systems was performed. WID: COMPARISON: None Findings: Slightly limited examination in the setting of body habitus and patient mobility. Right Carotid system: Left Carotid system: The right and left common carotid and external carotid arteries are patent. There is antegrade flow in both vertebral arteries and external carotid arteries. The following flow velocities were obtained (cm/sec). Right Carotid System: Carotid artery velocities are within normal limits. ICA PSV: Peak Systolic Velocity 96 ICA/CCA Ratio: 2.0 Left Carotid System: ICA PSV: Peak Systolic Velocity 59 ICA/CCA Ratio: ICA/CCA Ratio 1.0 IMPRESSION: No evidence of hemodynamically significant stenoses within the carotid arteries. A antegrade vertebral artery flow. Estimation of carotid stenosis is based on velocity parameters that correlate the residual internal carotid diameter with that of the more distal vessel in accordance with the [place] Symptomatic Carotid Endarterectomy Trial (NASCET).
--- NOTE | 2025-06-22 17:03 | DVH ---
Bilateral lower extremity venous duplex Clinical History: rule out dvt, pain Comparison: None Technique: Duplex Doppler evaluation of the deep venous systems of both lower extremities from the common femoral veins to the popliteal veins including color Doppler and spectral/pulsed waveform analysis was performed. Findings: RIGHT SIDE: The common femoral vein and saphenofemoral junction is not visualized secondary to body habitus. The proximal femoral vein is not visualized secondary to body habitus. The mid and distal femoral vein demonstrates appropriate compressibility and waveform variability. The deep femoral is not visualized secondary to body habitus The popliteal vein demonstrates appropriate compressibility and waveform variability. LEFT SIDE: The common femoral vein and saphenofemoral junction is not visualized secondary to body habitus. The proximal femoral vein is not visualized secondary to body habitus. The mid and distal femoral vein demonstrates appropriate compressibility and waveform variability. The deep femoral vein is not visualized secondary to body habitus The popliteal vein demonstrates appropriate compressibility and waveform variability. Impression: Bilateral common femoral veins, saphenofemoral junctions, and proximal femoral veins are not visualized secondary to body habitus Otherwise, no evidence of DVT in the visualized bilateral lower extremity veins.
[2025-06-22 17:05] LABS: Amphetamine Screen, Urine Neg (NEGATIVE)
[2025-06-22 17:06] LABS: Barbiturate Scree,Urine Neg (NEGATIVE); Benzodiazephine Screen, Urine Neg (NEGATIVE); Cocaine Screen, Urine Neg (NEGATIVE); Opiate Scree,Urine Neg (NEGATIVE)
[2025-06-22 17:13] LABS: Cannabinoid Screen, Urine Neg (NEGATIVE); Phencyclidine Screen, Urine Neg (NEGATIVE)
[2025-06-22] MEDS: SODIUM CHLORIDE 0.9% 1,000 ML IV ONE (17:51)
[2025-06-22 22:22] VITALS: BP 143/98; PULSE 95; RESP 16; O2SAT 93
[2025-06-22 22:37] VITALS: RESP 18
[2025-06-22 22:46] VITALS: BP 143/92; PULSE 97; RESP 18; TEMP 98.6; O2SAT 94
[2025-06-22 23:18] VITALS: BP 143/92; PULSE 97; RESP 18; TEMP 98.6; O2SAT 94
[2025-06-23] VITALS (8 sets, daily range): BP systolic 135–158; BP diastolic 85–104; PULSE 84–105; RESP 16–19; TEMP 97.6–98.6; O2SAT 93–97
[2025-06-23 07:56] LABS: Hematocrit 39.7 % (36.0-46.0); Hemoglobin 13.0 g/dL (12.2-16.2); Mean Corpuscular Hemoglobin 30.5 pg (28.0-32.0); Mean Corpuscular Volume 93.0 fL (80.0-100.0); Nucleated Red Blood Cells % 0.0 %
[2025-06-23 09:06] LABS: Albumin 4.0 g/dL (3.2-4.8); Alkaline Phosphatase 80 U/L (46-116); Anion Gap 12 (5-15); BUN/Creatinine Ratio 13.5 (10.0-20.0); Bilirubin, Total 0.4 mg/dL (0.2-1.0); Blood Urea Nitrogen 13 mg/dL (9-23); Calcium 9.2 mg/dL (8.7-10.4); Carbon Dioxide 26 mmol/L (20-31); Chloride 102 mmol/L (98-107); Glucose 100 mg/dL (74-106); Potassium 4.2 mmol/L (3.5-5.1); Sodium 140 mmol/L (136-145); Total Protein 7.1 g/dL (5.7-8.2)
[2025-06-23 09:07] LABS: Alanine Aminotransferase 48 U/L (7-40)
[2025-06-23] MEDS: ENOXAPARIN SOD 40 MG/0.4 ML SYRINGE SC SCH (10:00)
--- NOTE | 2025-06-23 14:16 | DVHPN2 ---
Subjective in bed resting Reviewed: H&P Changes from previous H/P or p: No Changes Objective Vitals Vital Signs Date Time Temp Pulse Resp B/P (MAP) Pulse Ox O2 Delivery O2 Flow Rate FiO2 06/23/25 09:00 97.6 105 18 155/104 (121) 93 97.6 06/22/25 22:46 Room Air* 0 94 21 Intake/Output Intake and Output 06/23/25 07:00 Intake Total 100 ml Balance 100 ml Intake Oral 100 ml General Appearance: Alert, Oriented X3 HEENT: Atraumatic Cardiovascular: Regular rate, Normal S1, Normal S2 Abdomen: Normal bowel sounds Medications Current Medications Medications Dose Ordered Sig/Tiffanie Route Start Time Stop Time Status Last Admin Dose Admin Docusate Sodium 100 mg BIDPRN PRN PO 06/22/25 15:30 Acetaminophen 650 mg Q6HP PRN PO 06/22/25 15:30 Enoxaparin Sodium 40 mg DAILY SC 06/23/25 10:00 06/23/25 10:00 40 MG Amlodipine Besylate 5 mg DAILY PO 06/24/25 10:00 Laboratory Results Laboratory Tests 06/23/25 07:14 Chemistry Test 06/23/25 07:14 Albumin 4.0 g/dL (3.2-4.8) Calcium Level 9.2 mg/dL (8.7-10.4) Total Protein 7.1 g/dL (5.7-8.2) LFT Test 06/23/25 07:14 Alanine Aminotransferase (ALT) 48 U/L (7-40) H Alkaline Phosphatase 80 U/L (46-116) Aspartate Amino Transferase (AST) 52 U/L (13-40) H Total Bilirubin 0.4 mg/dL (0.2-1.0) Urinalysis Test 06/22/25 12:12 Urine Color Light-yellow (Yellow) Urine Clarity Clear (Clear) Urine pH 6.0 (5.0-9.0) Urine Specific [place] 1.013 (1.001-1.035) Urine Protein Negative (Negative) Urine Ketones Negative (Negative) Urine Blood Negative /uL (Negative) Urine Nitrite Negative (Negative) Urine Bilirubin Negative (Negative) Urine Urobilinogen Normal mg/dL (Negative) Urine Leukocyte Esterase Negative /uL (Negative) Urine RBC <1 /hpf (0 - 4) Urine Microscopic WBC 1 /HPF (0-5) Urine Squamous Epithelial Cells Few /hpf (<5) Urine Bacteria Few /hpf (None Seen) H Urine Glucose Normal mg/dL (Normal) Assessment/Plan Assessment/Plan # Recurrent falls Likely multifactorial related to dementia, impaired mobility, and psychotropic polypharmacy. Plan includes fall precautions, PT evaluation, orthostatic vitals, telemetry, and review of all psych meds with temporary holding of nonessential agents. # Syncope Etiology unclear. Head CT and EKG reassuring. Troponins negative. Will complete workup with carotid ultrasound, echocardiogram, BNP, CRP, UDS, and orthostatics while on telemetry. # Pulmonary congestion Chest X-ray suggests congestion versus viral infection. No fever or hypoxia. Monitor respiratory exam, inflammatory markers, and clinical course; defer antibiotics unless new findings develop. # Bilateral lower-extremity edema May reflect venous insufficiency or cardiac causes. Order bilateral venous Dopplers and echocardiogram. # Right knee pain Likely musculoskeletal. Obtain knee X-ray and involve PT for gait evaluation. # Mild acute kidney injury Creatinine mildly elevated. Most likely prerenal or medication-related. Encourage gentle hydration, avoid nephrotoxins, repeat BMP. # Dementia, bipolar disorder, anxiety Polypharmacy may be contributing to instability; review and adjust regimen. Psychiatry consult if needed. #COPD No symptoms #Tobacco use Counseling about quitting Dispo: Discharge tomorrow Plan discussed with: Patient My Orders Orders - MELISSA LUIS MD Procedure Category Date Status Time Amlodipine Tablet PHA 06/24/25 In Process (Norvasc Tablet) 10:00 Date of Service: Jun 23, 2025 Billing Provider: MELISSA LUIS MD Common Visit Codes: [id number] INP/OBS CARE(HIGH) MELISSA LUIS MD Jun 23, 2025 14:16
[2025-06-24] VITALS (7 sets, daily range): BP systolic 147–161; BP diastolic 80–105; PULSE 18–98; RESP 18–20; TEMP 97.7–98.8; O2SAT 91–98
[2025-06-24] MEDS ORDERED: FLUO-125 PO (10:22)
[2025-06-24] MEDS ORDERED: BREX1TAB6 PO (10:22)
[2025-06-24] MEDS ORDERED: FAMO20IN2 IV (10:22)
[2025-06-24] MEDS ORDERED: ZIPR80CA43 PO (10:22)
[2025-06-24] MEDS ORDERED: DONE5TAB80 PO (10:22)
[2025-06-24] MEDS ORDERED: ATEN-60 PO (10:22)
[2025-06-24] MEDS ORDERED: BENZ2TAB50 PO (10:22)
--- NOTE | 2025-06-24 11:41 | DVHSR ---
APPROVED REPORT EXAM: Two-dimensional and M-mode echocardiogram with Doppler and color Doppler. Blood Pressure: 156/86 mmHg INDICATION Syncope RISK FACTORS Obesity: Height: 5'4", Weight: 258 DIMENSIONS LVDd 5.0 (3.8-5.7cm) LA (2D) 3.1 (1.9-4.0cm) Aortic Root 3.3 (2.0-3.7cm) LVDs 3.4 (2.5-4.0cm) LA (MM) (1.9-4.0cm) Aortic Cusp Exc 1.6 (1.5-2.0cm) EF (%) 55.0 (55-70%) Rt. Atrium 3.7 (1.9-4.0cm) Asc. Aorta cm IVSd 1.1 (0.7-1.1cm) RV (D) (1.8-2.4cm) PWd 1.1 (0.7-1.1cm) Mitral Valve Mitral Mitral Stenosis E wave 0.75m/s MV Mean GR. mmHg A wave 0.99m/s MV Peak GR. mmHg E/A ratio 0.8 2D MVA cm2 DECEL Time 183ms PRESS 1/2 Time ms Aortic Valve Aortic Valve Aortic Stenosis V1 1.04m/s AO Mean GR. 5mmHg V2 1.61m/s AO Peak GR. 10mmHg LVOT Diameter 1.6 (1.8-2.4cm) Doppler JOSEPH 1.30cm2 Other Information Technically limited study due to body habitus, patient laying flat. Conclusion 1)Normal right and left ventricle systolic function with estimated ejection fraction of 55%. Normal LV wall motion 2)no significant valvular pathology was seen
--- NOTE | 2025-06-24 14:32 | DVHPN2 ---
Subjective in bed resting Reviewed: H&P Changes from previous H/P or p: No Changes Objective Vitals Vital Signs Date Time Temp Pulse Resp B/P (MAP) Pulse Ox O2 Delivery O2 Flow Rate FiO2 06/24/25 09:00 98.0 92 20 161/97 (118) 94 98.0 06/24/25 08:00 Room Air* 0 21 Intake/Output Intake and Output 06/24/25 05:00 Intake Total 850 ml Output Total 400 ml Balance 450 ml Intake Oral 850 ml Output Urine Total 400 ml # Voids 3 # Bowel Movements 1 General Appearance: Alert, Oriented X3 HEENT: Atraumatic Cardiovascular: Regular rate, Normal S1, Normal S2 Abdomen: Normal bowel sounds Medications Current Medications Medications Dose Ordered Sig/Tiffanie Route Start Time Stop Time Status Last Admin Dose Admin Docusate Sodium 100 mg BIDPRN PRN PO 06/22/25 15:30 Acetaminophen 650 mg Q6HP PRN PO 06/22/25 15:30 Enoxaparin Sodium 40 mg DAILY SC 06/23/25 10:00 06/24/25 08:34 40 MG Amlodipine Besylate 10 mg DAILY PO 06/25/25 10:00 Laboratory Results Laboratory Tests 06/23/25 07:14 Urinalysis Test 06/22/25 12:12 Urine Color Light-yellow (Yellow) Urine Clarity Clear (Clear) Urine pH 6.0 (5.0-9.0) Urine Specific [place] 1.013 (1.001-1.035) Urine Protein Negative (Negative) Urine Ketones Negative (Negative) Urine Blood Negative /uL (Negative) Urine Nitrite Negative (Negative) Urine Bilirubin Negative (Negative) Urine Urobilinogen Normal mg/dL (Negative) Urine Leukocyte Esterase Negative /uL (Negative) Urine RBC <1 /hpf (0 - 4) Urine Microscopic WBC 1 /HPF (0-5) Urine Squamous Epithelial Cells Few /hpf (<5) Urine Bacteria Few /hpf (None Seen) H Urine Glucose Normal mg/dL (Normal) Assessment/Plan Assessment/Plan # Recurrent falls Likely multifactorial related to dementia, impaired mobility, and psychotropic polypharmacy. Plan includes fall precautions, PT evaluation, orthostatic vitals, telemetry, and review of all psych meds with temporary holding of nonessential agents. PT eval # Syncope Etiology unclear. Head CT and EKG reassuring. Troponins negative. Will complete workup with carotid ultrasound, echocardiogram, BNP, CRP, UDS, and orthostatics while on telemetry. # Pulmonary congestion Chest X-ray suggests congestion versus viral infection. No fever or hypoxia. Monitor respiratory exam, inflammatory markers, and clinical course; defer antibiotics unless new findings develop. # Bilateral lower-extremity edema May reflect venous insufficiency or cardiac causes. Order bilateral venous Dopplers and echocardiogram. # Right knee pain Likely musculoskeletal. Obtain knee X-ray and involve PT for gait evaluation. # Mild acute kidney injury Creatinine mildly elevated. Most likely prerenal or medication-related. Encourage gentle hydration, avoid nephrotoxins, repeat BMP. # Dementia, bipolar disorder, anxiety Polypharmacy may be contributing to instability; review and adjust regimen. Psychiatry consult if needed. #COPD No symptoms #Tobacco use Counseling about quitting Dispo: Discharge tomorrow Plan discussed with: Patient My Orders Orders - MELISSA LUIS MD Procedure Category Date Status Time Discharge DISCHARGE 06/24/25 Transmitted 10:13 Amlodipine Tablet PHA 06/25/25 In Process (Norvasc Tablet) 10:00 Pt Request For Service PT 06/24/25 Logged 13:09 Date of Service: Jun 24, 2025 Billing Provider: MELISSA LUIS MD Common Visit Codes: [id number] INP/OBS CARE(HIGH) MELISSA LUIS MD Jun 24, 2025 14:32
[2025-06-24] MEDS: ACETAMINOPHEN 325 MG TAB PO PRN (17:00)
[2025-06-25 01:00] VITALS: BP 141/85; PULSE 100; RESP 18; TEMP 98.2; O2SAT 94
[2025-06-25 05:00] VITALS: BP 114/54; PULSE 101; RESP 18; TEMP 98.7; O2SAT 99
--- NOTE | 2025-06-25 06:38 | ECG ---
[facility] Test Date: 2025-06-22 Test Time: 10:41:15 Pat Name: RYAN TMOLINSON Department: Room: 0248T A Gender: F Line Maintenance Technician: ERIKA : 1955 Requested By: ALEENA COLBERT Order Number: [id number] Reading MD: Say Dexter Measurements Intervals [place] Rate: 87 P: 46 [place]: 181 QRS: 16 QRSD: 86 T: 33 QT: 422 QTc: 508 Interpretive Statements Sinus rhythm Low voltage, precordial leads Nonspecific T abnrm, anterolateral leads Prolonged QT interval Baseline wander in lead(s) V1 Electronically Signed On 06-28-2025 18:56:36 PST by Say Dexter Please click the below link to view image of tracing.
[2025-06-25 08:00] VITALS: BP 161/97; TEMP 37.1
== END 2025-06-25 08:20 | disposition home health service (06) | DRG 74 ==
LOC: ER 10:19 → OVERFLOW 15:21 → TELE-EAST 22:37
PROVIDERS: ADMIT Hospitalist; ATTEND Hospitalist
DX: G90.89 Other disorders of autonomic nervous system (principal); N17.9 Acute kidney failure, unspecified; J44.9 Chronic obstructive pulmonary disease, unspecified; F03.90 Unspecified dementia, unspecified severity, without behavioral disturbance, psychotic disturbance, mood disturbance, and anxiety; F31.9 Bipolar disorder, unspecified; F03.93 Unspecified dementia, unspecified severity, with mood disturbance; F03.94 Unspecified dementia, unspecified severity, with anxiety; M25.561 Pain in right knee; I87.2 Venous insufficiency (chronic) (peripheral); R29.6 Repeated falls; B33.8 Other specified viral diseases; F17.210 Nicotine dependence, cigarettes, uncomplicated; F20.9 Schizophrenia, unspecified; T50.995A Adverse effect of other drugs, medicaments and biological substances, initial encounter; Z79.899 Other long term (current) drug therapy; Y92.89 Other specified places as the place of occurrence of the external cause
CPT/HCPCS: 36415; 70450; 71045; 73560; 80048; 80053; 80307; 81001; 82962; 83880; 84484; 85025; 86141; 93005; 93306; 93886; 93970; 96372; 97110; 97163; 97530; 99291; G0378

== ENCOUNTER 2025-07-16 01:15 | Inpatient (IN) | payer MEDICARE, MEDICAID ==
[2025-07-16] VITALS (7 sets, daily range): BP systolic 126–131; BP diastolic 72–80; PULSE 67–77; RESP 18–20; TEMP 97.8–98.2; O2SAT 93–96
[~2025-07-16] VITALS: Ht 162.6 cm; Wt 110.1 kg
[~2025-07-16 01:15] MED LIST changes: +ATEN-60 PO; +BENZ2TAB50 PO; +BREX1TAB6 PO; +DONE5TAB80 PO; +FAMO20IN2 IV; +FLUO-125 PO; +ZIPR80CA43 PO
--- NOTE | 2025-07-16 03:35 | ED.PDOC ---
History of Present Illness HPI Comments 70 y/o obese F is BIBA from [facility] for c/c of left foot discoloration and swelling. Significant past medical history of anxiety, dementia, bipolar disorder, back surgery, and bilateral knee surgery. Patient reports on facility staff calling EMS, due to concerns regarding foot's appearance after recent knee surgery. Denial of any pain, shortness of breath, numbness, tingling, or further acute symptoms. Chief Complaint: Lower Extremity Time Seen by MD: 02:40 Primary Care Provider: UNKNOWN Reviewed Notes: Nurses Notes, Restaurant Hospitality Manager Notes, Medications, Allergies Allergies: Coded Allergies: NO KNOWN ALLERGIES (Unverified , 09/29/16) Home Meds Reported Medications Atenolol (Atenolol) 25 Mg Tab, 25 MG PO DAILY for 30 Days, MG 06/24/25 Benztropine Mesylate (Benztropine Mesylate) 2 Mg Tab, 2 MG PO DAILY 06/24/25 Famotidine In Nacl (Famotidine) 20 Mg/50 M Inj, 20 MG IV DAILY, INJ 06/24/25 Donepezil Hydrochloride (DONEPEZIL HCL) 5 Mg Tab, 10 MG PO DAILY for 30 Days, MG 06/24/25 Ziprasidone Hydrochloride (Geodon) 80 Mg Cap, 20 MG PO BID, CAP 06/24/25 Brexpiprazole (Rexulti) 4 Mg Tab, 4 MG PO DAILY, TAB 06/24/25 Fluoxetine Hcl (Fluoxetine Hcl) 20 Mg Cap, 40 MG PO DAILY for 30 Days, MG 06/24/25 Diphenoxylate W/ Atropine (Diphenoxylate/Atropine 2.5-0.025 mg) 1 Tab Tab, 1 TAB PO DAILY, TAB 09/29/16 Duloxetine HCl (Duloxetine HCl) 60 Mg Cap, 60 MG PO BID, CAP 09/29/16 Aripiprazole (Aripiprazole) 30 Mg Tab, 30 MG PO DAILY, TAB 09/29/16 Oxybutynin Chloride (Oxybutynin Chloride) 5 Mg Tab, 5 MG OR BID, TAB 09/29/16 Trazodone Hcl (Trazodone Hcl) 150 Mg Tab, 1 TAB PO TID, #30 TAB 1 Refill 09/29/16 Information Source: Patient, Emergency Med Personnel Mode of Arrival: EMS Severity: Moderate Timing: Days Duration: Since onset Prehospital treatment: 12 Lead EKG, Nurse Instructor Past Medical History PAST MEDICAL HISTORY: Anxiety, Dementia, Depression, Schizophrenia Past Medical History (Other): Bipolar disorder Surgical History (Other): Back surgery, bilateral knee surgery NANOTECHNOLOGY TECHNICIAN History: No Pertinent NANOTECHNOLOGY TECHNICIAN History Family History Family History: Reviewed,noncontributory to illness Social History Smoker: Non-Smoker Alcohol: Denies ETOH Use Drugs: Denies Drug Use Lives In: Assisted Care, [facility] Other Systems: Reviewed and Negative (As per HPI) Physical Exam General Appearance: No Apparent Distress, Obese HEENT: Normal ENT Inspection, Pharynx Normal, TMs Normal Neck: Full Range of Motion, Non-Tender, Normal, Normal Inspection Respiratory: Chest Non-Tender, Lungs Clear, No Accessory Muscle Use, No Respiratory Distress, Normal Breath Sounds Cardiovascular: No Edema, No JVD, No Murmur, No Gallop, Normal Peripheral Pulses, Regular Rate/Rhythm Breast Exam: Deferred Gastrointestinal: No Organomegaly, Non Tender, No Pulsatile Mass, Normal Bowel Sounds, Soft Genitalia: Deferred Pelvic: Deferred Rectal: Deferred Extremities: No calf tenderness, Normal capillary refill, Normal range of motion, Non-tender, No pedal edema, Other (left foot erythema, small blisters on the fourth digit, darken tissue to the distal foot digits) Musculoskeletal : Apperance: Normal Neurologic: Alert, k [employer] school principal II-XII nml as Tested, No Motor Deficits, Normal Affect, Normal Mood, No Sensory Deficits Cerebellar Function: Normal Reflexes: Normal Skin: Dry, Normal Color, Warm, Other (left foot erythema, small blisters on the fourth digit, darken tissue to the distal foot digits) Lymphatic: No Adenopathy Was a procedure done? Was a procedure done?: No Differential Dx Considerations may include: cellulitis, dermatitis, compartment syndrome, post-op complication, among others X-Ray, Labs, Meds, VS Vital Signs Date Time Temp Pulse Resp B/P (MAP) Pulse Ox O2 Delivery O2 Flow Rate FiO2 07/16/25 02:22 95 Room Air* 0 21 07/16/25 02:16 97.7 78 13 131/74 (93) 95 97.7 07/16/25 01:25 98.0 76 18 118/76 97 98.0 Lab Test 07/16/25 03:12 Range/Units White Blood Count 6.4 4.4-10.8 10^3/uL Red Blood Count 4.39 4.0-5.20 10^6/uL Hemoglobin 13.4 12.2-16.2 g/dL Hematocrit 40.5 36.0-46.0 % Mean Corpuscular Volume 92.2 80.0-100.0 fL Mean Corpuscular Hemoglobin 30.6 28.0-32.0 pg Mean Corpuscular Hemoglobin Concent 33.2 32.0-36.0 g/dL Red Cell Distribution Width 14.7 H 11.8-14.3 % Platelet Count 295 140-450 10^3/uL Mean Platelet Volume 7.6 6.9-10.8 fL Neutrophils (%) (Auto) 54.8 37.0-80.0 % Lymphocytes (%) (Auto) 26.0 10.0-50.0 % Monocytes (%) (Auto) 13.9 H 0.0-12.0 % Eosinophils (%) (Auto) 5.0 0.0-7.0 % Basophils (%) (Auto) 0.3 0.0-2.0 % Neutrophils # (Auto) 3.5 1.6-8.6 10 ^3/uL Lymphocytes # (Auto) 1.7 0.4-5.4 10 ^3/uL Monocytes # (Auto) 0.9 0-1.3 10 ^3/uL Eosinophils # (Auto) 0.3 0-0.8 10 ^3/uL Basophils # (Auto) 0 0-0.2 10 ^3/uL Nucleated Red Blood Cells 0.3 % Sodium Level 139 136-145 mmol/L Potassium Level 3.9 3.5-5.1 mmol/L Chloride Level 102 98-107 mmol/L Carbon Dioxide Level 27 20-31 mmol/L Anion Gap 10 5-15 Blood Urea Nitrogen 7 L 9-23 mg/dL Creatinine 0.96 0.550-1.02 mg/dL Glomerular Filtration Rate Calc 63 >90 mL/min BUN/Creatinine Ratio 7.3 L 10.0-20.0 Serum Glucose 93 74-106 mg/dL Lactic Acid Level 1.5 0.4-2.0 mmol/L Calcium Level 9.2 8.7-10.4 mg/dL Total Bilirubin 0.3 0.2-1.0 mg/dL Aspartate Amino Transferase (AST) 38 13-40 U/L Alanine Aminotransferase (ALT) 37 7-40 U/L Alkaline Phosphatase 108 46-116 U/L Total Protein 7.5 5.7-8.2 g/dL Albumin 4.2 3.2-4.8 g/dL Current Medications Medications (Trade) Dose Ordered Sig/Tiffanie Route Start Time Stop Time Status Last Admin Sodium Chloride 1,000 ml @ 1,000 mls/hr Q1H ONCE IVB 07/16/25 02:45 07/16/25 03:44 DC 07/16/25 04:18 Time of 1ST Reevaluation: 03:20 Reevaluation 1ST: Unchanged Patient Education/Counseling: Diagnosis, Treatment Family Education/Counseling: No Family Present SEPSIS Sepsis Screen Date sepsis recognized/suspect: Jul 16, 2025 Time Sepsis recognized/suspect: 220 Recent Procedure: No On Antibiotic Therapy: No Respiratory Rate >20: No Heart Rate >90: No Temp<36 C (96.8 F) or >38.3 C: No SBP <90 or MAP <65 mmHG: No New Acute Mental Status Change: No Is the patient on CPAP, BIPAP,: No Physician Orders L Foot 3 View Xray (07/16/25 02:42) Blood Culture (07/16/25 02:43) Lt Lower Dvt (07/16/25 04:40) Lt Low Ext Art Duplex (07/16/25 04:40) Complete Blood Count (07/16/25 05:00) Comprehensive Metabolic Panel (07/16/25 05:00) Donepezil Tablet (Aricept Tablet) (07/16/25 22:00) Atenolol Tablet (Tenormin Tablet) (07/16/25 10:00) Duloxetine Hcl Capsule (Cymbalta Capsule (07/16/25 10:00) Admit (07/16/25 05:00) Allergies (07/16/25 05:00) Code Status (07/16/25 05:00) Sodium Chloride Lock (Saline Lock Ns) (07/16/25 06:00) Oxygen Per Hour (07/16/25 05:00) Hydrocodone-Acet 5/325mg Tab (Achille 5/32 (07/16/25 05:00) Ondansetron Hcl (Zofran) (07/16/25 05:00) Docusate Sodium Capsule (Colace Capsule) (07/16/25 05:00) Enoxaparin Sodium (Lovenox) (07/16/25 10:00) Fall Risk Precautions In Place QSHIFT (07/16/25 05:00) Complete Blood Count (07/17/25 04:00) Comprehensive Metabolic Panel (07/17/25 04:00) Cardiac Diet-2gna,Lofat,Lochol (07/16/25 Breakfast) Condition: Serious (07/16/25 05:00) Acetaminophen Tablet (Tylenol Tablet) (07/16/25 05:00) Maintain Bed Rest (07/16/25 05:00) Nitroglycerin Sublingual (Ntrostat Subli (07/16/25 05:00) Morphine Sulfate Injection (07/16/25 05:00) Notify Of Changes From Base (07/16/25 05:00) Emergency Dysrhythmia Protocol (07/16/25 05:00) Oxygen By Nasal Cannula (07/16/25 05:00) Vital Signs Date Time Temp Pulse Resp B/P (MAP) Pulse Ox O2 Delivery O2 Flow Rate FiO2 07/16/25 02:22 95 Room Air* 0 21 07/16/25 02:16 97.7 78 13 131/74 (93) 95 97.7 07/16/25 01:25 98.0 76 18 118/76 97 98.0 Laboratory Tests Test 07/16/25 03:12 Lactic Acid Level 1.5 mmol/L (0.4-2.0) White Blood Count 6.4 10^3/uL (4.4-10.8) Medications Medications Dose Ordered Sig/Tiffanie Route Start Time Stop Time Status Last Admin Dose Admin Sodium Chloride 1,000 ml @ 1,000 mls/hr Q1H ONCE IVB 07/16/25 02:45 07/16/25 03:44 DC 07/16/25 04:18 Departure 1 Departure Time of Disposition: 05:00 Impression: Primary Impression: Cellulitis of left foot Disposition: ADMITTED INPATIENT Condition: Guarded Discharged With: Self Comments 70-year-old female with a history of prior knee surgeries and now with discoloration to the left foot. There is some bruising and also some erythema. There is some swelling. There is a little bit of blistering. I suspect possible so cellulitis. Patient was given antibiotics. I did order ultrasound to rule out DVT and arterial occlusion and these studies are pending. Patient will need to be admitted for supportive care and further workup. Critical Care Note Critical Care Time?: Yes (35 min-critical care time only) Critical care comment: Total critical care time: Approximately 36 minutes Due to a high probability of clinically significant, life threatening deterioration, the patient required my highest level of preparedness to intervene emergently and I personally spent this critical care time directly and personally managing the patient. This critical care time included obtaining a history; examining the patient; pulse oximetry; ordering and review of studies; arranging urgent treatment with development of a management plan; evaluation of patient's response to treatment; frequent reassessment; and, discussions with other providers. This critical care time was performed to assess and manage the high probability of imminent, life-threatening deterioration that could result in multi-organ failure. It was exclusive of separately billable procedures and treating other patients. Stability Stability form required: No Heart Score Heart Score: Heart Score Response (Comments) Value History N/A 0 EKG N/A 0 Age N/A 0 Risk Factors N/A 0 Troponin N/A 0 Total 0 I personally scribed for HANS ASTUDILLO MD ([email or web address]) on 07/16/25 at 03:35. Electronically submitted by Alex Roper ([email or web address]). HANS ASTUDILLO MD Jul 16, 2025 03:35
[2025-07-16 03:43] LABS: Hematocrit 40.5 % (36.0-46.0); Hemoglobin 13.4 g/dL (12.2-16.2); Mean Corpuscular Hemoglobin 30.6 pg (28.0-32.0); Mean Corpuscular Volume 92.2 fL (80.0-100.0); Nucleated Red Blood Cells % 0.3 %
[2025-07-16 03:56] LABS: Alanine Aminotransferase 37 U/L (7-40); Albumin 4.2 g/dL (3.2-4.8); Alkaline Phosphatase 108 U/L (46-116); Anion Gap 10 (5-15); BUN/Creatinine Ratio 7.3 (10.0-20.0); Calcium 9.2 mg/dL (8.7-10.4); Carbon Dioxide 27 mmol/L (20-31); Chloride 102 mmol/L (98-107); Glucose 93 mg/dL (74-106); Potassium 3.9 mmol/L (3.5-5.1); Sodium 139 mmol/L (136-145); Total Protein 7.5 g/dL (5.7-8.2)
[2025-07-16 03:57] LABS: Blood Urea Nitrogen 7 mg/dL (9-23)
[2025-07-16 04:10] LABS: Bilirubin, Total 0.3 mg/dL (0.2-1.0)
[2025-07-16] MEDS: SODIUM CHLORIDE 0.9% 1,000 ML IVB ONE (04:18)
[2025-07-16] MEDS ORDERED: ONDANSETRON HCL 4 MG/2 ML VIAL IV PRN (05:00)
[2025-07-16] MEDS ORDERED: ACETAMINOPHEN 325 MG TAB PO PRN (05:00)
[2025-07-16] MEDS ORDERED: NITROGLYCERIN 0.4 MG SL TAB SL PRN (05:00)
[2025-07-16] MEDS ORDERED: HYDROcodone-ACET 5/325MG TAB PO PRN (05:00)
[2025-07-16] MEDS ORDERED: DOCUSATE SOD 100 MG CAP PO PRN (05:00)
[2025-07-16] MEDS ORDERED: MORPHINE SULFATE INJ 2 MG/ml SYRG IV PRN (05:00)
--- NOTE | 2025-07-16 05:12 | DVHHP2 ---
History of Present Illness Reason for Visit: Left foot swelling History of Present Illness The patient is a 70-year-old female with past medical history of dementia, depression, schizophrenia, anxiety, and bipolar disorder who presented to [facility] ED with complaint of left foot swelling. Patient reports that sh ledy has been experiencing left foot swelling associated with discoloration, toes blisters, getting worse that prompted this visit. Patient was seen and evaluated in the ED with left toes blisters, laboratory data shows WBC 6.4, platelets 295, sodium 139, potassium 3.9, BUN 7, creatinine 0.96, GFR 63, glucose 93, calcium 9.2, blood pressure 131/74, heart rate 78, temperature 97.7 F, O2 saturation 96% on room air. Left foot x-ray revealing degenerative changes in the foot, no acute osseous abnormality. Patient was started on IV antibiotic regimen Zosyn, please see medication orders section in the computer. On my assessment, patient denied chest pain, no headache, diaphoresis, dizziness, shortness of breaths, no diarrhea, nausea, vomiting, fever, no chills. Patient was admitted for further evaluation and medical management. Past Medical History Anxiety, Dementia, Depression, Schizophrenia, Bipolar disorder Past Surgical History Back surgery, bilateral knee surgery Family History Reviewed, noncontributory to the management of this case. Past Social History The patient lives at home, denies smoking, alcohol or illicit drugs abuse. Review of Systems Constitutional: Yes: Weakness; No: Fever, Chills, Sweats, Malaise, Other Eyes: No: Pain, Vision change, Conjunctivae inflammation, Eyelid inflammation, Other, Redness ENT: No: Ear pain, Ear discharge, Nose pain, Nose discharge, Nose congestion, Mouth pain, Mouth swelling, Throat pain, Throat swelling, Other Respiratory: No: Cough, Dry, Shortness of breath, SOB with excertion, Wheezing, Hemoptysis, Pleuritic Pain, Sputum, Wheezing, Other Cardiovascular: No: Chest Pain, Palpitations, Orthopnea, Paroxysmal Noc. Dyspnea, Edema, Lt Headedness, Other Gastrointestinal: No: Nausea, Vomiting, Abdominal Pain, Diarrhea, Constipation, Melena, Hematochezia, Other Genitourinary: No Dysuria, No Frequency, No Incontinence, No Hematuria, No Retention, No Other Musculoskeletal: other (Left foot swelling.); No: neck pain, shoulder pain, arm pain, back pain, hand pain, leg pain, foot pain Skin: Other (Left toes blisters); No: Rash, Lesions, Jaundice, Bruising Neurological: No: Weakness, Numbness, Incoordination, Change in speech, Confusion, Seizures, Other Allergies: Coded Allergies: NO KNOWN ALLERGIES (Unverified , 09/29/16) Exam Vital Signs Vital Signs Date Time Temp Pulse Resp B/P (MAP) Pulse Ox O2 Delivery O2 Flow Rate FiO2 07/16/25 02:22 95 Room Air* 0 21 07/16/25 02:16 97.7 78 13 131/74 (93) 97.7 General Appearance: Alert, Oriented X3, Cooperative, No acute distress HEENT: Atraumatic, PERRLA, EOMI, Mucous membr. moist/pink Respiratory: Normal air movement Cardiovascular: Regular rate, Normal S1, Normal S2, No murmurs Abdominal: Normal bowel sounds, Soft, No tenderness, No hepatospenomegaly, No masses Extremities: No clubbing, No cyanosis, No edema, Normal pulses, No tenderness/swelling Skin: No rashes, No significant lesion Neuro: Normal speech, Normal tone, Sensation intact, Cranial nerves 3-12 NL, Reflexes 2+, Other (Generalized weakness) Psych/Mental Status: Mental status NL, Mood NL Labs/Xrays Labs Test 07/16/25 03:12 Range/Units White Blood Count 6.4 4.4-10.8 10^3/uL Red Blood Count 4.39 4.0-5.20 10^6/uL Hemoglobin 13.4 12.2-16.2 g/dL Hematocrit 40.5 36.0-46.0 % Mean Corpuscular Volume 92.2 80.0-100.0 fL Mean Corpuscular Hemoglobin 30.6 28.0-32.0 pg Mean Corpuscular Hemoglobin Concent 33.2 32.0-36.0 g/dL Red Cell Distribution Width 14.7 H 11.8-14.3 % Platelet Count 295 140-450 10^3/uL Mean Platelet Volume 7.6 6.9-10.8 fL Neutrophils (%) (Auto) 54.8 37.0-80.0 % Lymphocytes (%) (Auto) 26.0 10.0-50.0 % Monocytes (%) (Auto) 13.9 H 0.0-12.0 % Eosinophils (%) (Auto) 5.0 0.0-7.0 % Basophils (%) (Auto) 0.3 0.0-2.0 % Neutrophils # (Auto) 3.5 1.6-8.6 10 ^3/uL Lymphocytes # (Auto) 1.7 0.4-5.4 10 ^3/uL Monocytes # (Auto) 0.9 0-1.3 10 ^3/uL Eosinophils # (Auto) 0.3 0-0.8 10 ^3/uL Basophils # (Auto) 0 0-0.2 10 ^3/uL Nucleated Red Blood Cells 0.3 % Sodium Level 139 136-145 mmol/L Potassium Level 3.9 3.5-5.1 mmol/L Chloride Level 102 98-107 mmol/L Carbon Dioxide Level 27 20-31 mmol/L Anion Gap 10 5-15 Blood Urea Nitrogen 7 L 9-23 mg/dL Creatinine 0.96 0.550-1.02 mg/dL Glomerular Filtration Rate Calc 63 >90 mL/min BUN/Creatinine Ratio 7.3 L 10.0-20.0 Serum Glucose 93 74-106 mg/dL Lactic Acid Level 1.5 0.4-2.0 mmol/L Calcium Level 9.2 8.7-10.4 mg/dL Total Bilirubin 0.3 0.2-1.0 mg/dL Aspartate Amino Transferase (AST) 38 13-40 U/L Alanine Aminotransferase (ALT) 37 7-40 U/L Alkaline Phosphatase 108 46-116 U/L Total Protein 7.5 5.7-8.2 g/dL Albumin 4.2 3.2-4.8 g/dL PATIENT: RYAN TOMLINSON JACCT: [id number] UNIT: [id number] : 1955 LOC: OVERFLOW ROOM / BED: [address] [place] [address] A AGE / SEX: 70 / F ADM STATUS: ADM IN SERVICE 0242 ORDERING PHYSICIAN: HANS ASTUDILLO MD PROCEDURE(s): LFOOT - L FOOT 3 VIEW XRAY REASON: swelling infection ORDER NUMBER(s): [id number], ACCESSION NUMBER(s): [id number] EXAM: XY L FOOT 3 VIEW XRAY HISTORY: swelling infection COMPARISON: CR FOOT LEFT 2 VIEW on DOS: 08/08/24 TECHNIQUE: Three views of the left foot were performed. FINDINGS: No acute fracture. No cortical erosion or destruction. There is 2nd, 3rd and 4th metatarsophalangeal joint space narrowing. There are postsurgical changes in the distal tibia and fibula. IMPRESSION: 1. No acute osseous abnormality. 2. Degenerative changes in the foot. SEPSIS Sepsis Screen Date sepsis recognized/suspect: Jul 16, 2025 Time Sepsis recognized/suspect: 220 Recent Procedure: No On Antibiotic Therapy: No Respiratory Rate >20: No Heart Rate >90: No Temp<36 C (96.8 F) or >38.3 C: No SBP <90 or MAP <65 mmHG: No New Acute Mental Status Change: No Is the patient on CPAP, BIPAP,: No Physician Orders L Foot 3 View Xray (07/16/25 02:42) Blood Culture (07/16/25 02:43) Lt Lower Dvt (07/16/25 04:40) Lt Low Ext Art Duplex (07/16/25 04:40) Vital Signs Date Time Temp Pulse Resp B/P (MAP) Pulse Ox O2 Delivery O2 Flow Rate FiO2 07/16/25 02:22 95 Room Air* 0 21 07/16/25 02:16 97.7 78 13 131/74 (93) 95 97.7 07/16/25 01:25 98.0 76 18 118/76 97 98.0 Laboratory Tests Test 07/16/25 03:12 Lactic Acid Level 1.5 mmol/L (0.4-2.0) White Blood Count 6.4 10^3/uL (4.4-10.8) Medications Medications Dose Ordered Sig/Tiffanie Route Start Time Stop Time Status Last Admin Dose Admin Sodium Chloride 1,000 ml @ 1,000 mls/hr Q1H ONCE IVB 07/16/25 02:45 07/16/25 03:44 DC 07/16/25 04:18 1,000 MLS/HR Assessment/Plan Assessment/Plan Cellulitis of left foot Generalized weakness Plan 1. Admit to med surge unit 2. Breathing treatment 3. Pain control management 4. IV antibiotic management 5. Management of fluids and electrolytes 6. Consultation for hospitalist/wound care 7. Diagnostic test left foot x-ray 8. DVT prophylaxis on Lovenox 9. Repeat labs CBC, CMP in a.m. 10. Home medication reviewed and reconciled 11. Continue with current medical management 12. Treatment plan discussed with patient and RN. Patient verbalized understanding. Plan discussed with: Patient, Other (RN) Problem List: (1) Cellulitis of left foot (2) Generalized weakness Date of Service: Jul 16, 2025 Billing Provider: DEL ANDERSON DNP Common Visit Codes: [id number] INP/OBS CARE (HIGH) DEL ANDERSON DNP Jul 16, 2025 05:12
--- NOTE | 2025-07-16 05:28 | DVH ---
EXAM: XY L FOOT 3 VIEW XRAY HISTORY: swelling infection COMPARISON: CR FOOT LEFT 2 VIEW on DOS: 08/08/24 TECHNIQUE: Three views of the left foot were performed. FINDINGS: No acute fracture. No cortical erosion or destruction. There is 2nd, 3rd and 4th metatarsophalangeal joint space narrowing. There are postsurgical changes in the distal tibia and fibula. IMPRESSION: 1. No acute osseous abnormality. 2. Degenerative changes in the foot.
[2025-07-16 06:31] LABS: Hematocrit 38.1 % (36.0-46.0); Hemoglobin 12.7 g/dL (12.2-16.2); Mean Corpuscular Hemoglobin 30.4 pg (28.0-32.0); Mean Corpuscular Volume 91.3 fL (80.0-100.0); Nucleated Red Blood Cells % 0.0 %
[2025-07-16 06:39] LABS: Alanine Aminotransferase 34 U/L (7-40); Albumin 3.9 g/dL (3.2-4.8); Alkaline Phosphatase 101 U/L (46-116); Anion Gap 8 (5-15); BUN/Creatinine Ratio 6.9 (10.0-20.0); Calcium 8.7 mg/dL (8.7-10.4); Carbon Dioxide 26 mmol/L (20-31); Chloride 105 mmol/L (98-107); Glucose 94 mg/dL (74-106); Potassium 3.8 mmol/L (3.5-5.1); Sodium 139 mmol/L (136-145); Total Protein 6.8 g/dL (5.7-8.2)
[2025-07-16 06:40] LABS: Bilirubin, Total 0.3 mg/dL (0.2-1.0)
[2025-07-16 06:41] LABS: Blood Urea Nitrogen 6 mg/dL (9-23)
[2025-07-16] MEDS: SODIUM CHLOR 0.9% PF (SALINE LOCK) 10ML VIAL/SYR IV SCH (06:44)
--- NOTE | 2025-07-16 09:31 | DVH ---
CLINICAL HISTORY: swelling TECHNIQUE: Color and duplex doppler imagine of the left lower extremity veins was performed. Vessel compression if possible was also performed. COMPARISON: US BILAT LOWER DVT on DOS: 06/22/25 FINDINGS: Left common femoral vein: Normal compressibility and flow. Left superficial femoral vein: Normal compressibility and flow. Left popliteal vein: Normal compressibility and flow. IMPRESSION: NO SONOGRAPHIC EVIDENCE FOR DEEP VENOUS THROMBOSIS IN THE LEFT LOWER EXTREMITY VEINS.
--- NOTE | 2025-07-16 09:33 | DVH ---
Left Lower Extremity Arterial Duplex CLINICAL HISTORY: swelling COMPARISON: US LT LOWER DVT on DOS: 07/16/25, US BILAT LOWER DVT on DOS: 06/22/25 TECHNIQUE: Duplex Doppler evaluation including color Doppler and spectral/pulsed waveform analysis of the lower extremity arteries was performed. 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 IMPRESSION: No hemodynamically significant stenosis based on peak systolic velocity criteria. Monophasic arterial waveforms are present in the calf suggesting possible underlying peripheral arterial disease. REFERENCE VALUES, [facility] ([facility]) vascular Imaging Lab Criteria: Peak systolic velocity ranges (in cm/sec) are as follows: <150 cm/s - <20 % stenosis 150-200 cm/s - 20-49% stenosis 200-300 cm/s - 50-75% stenosis >300 cm/s -> 75% stenosis
[2025-07-16] MEDS: ATENOLOL 25 MG TAB PO SCH (09:48)
[2025-07-16] MEDS: ENOXAPARIN SOD 40 MG/0.4 ML SYRINGE SC SCH (09:49)
--- NOTE | 2025-07-16 17:02 | DVHPNRES ---
Progress Note Date Seen: Jul 16, 2025 Resident Creating Document: BLANK SANDHU RESIDENT Medical Necessity Reason Pt with a Central, PICC or Fol: No Subjective Review of Systems patient is a 70-year-old female with past medical history of dementia, depression, schizophrenia, anxiety, and bipolar disorder who presented to [facility] ED with complaint of left foot swelling. Patient reports that she has been experiencing left foot swelling associated with discoloration, toes blisters, getting worse that prompted this visit. Patient was seen and evaluated in the ED with left toes blisters, laboratory data shows WBC 6.4, platelets 295, sodium 139, potassium 3.9, BUN 7, creatinine 0.96, GFR 63, glucose 93, calcium 9.2, blood pressure 131/74, heart rate 78, temperature 97.7 F, O2 saturation 96% on room air. - x-ray revealing degenerative changes in the foot, no acute osseous abnormality. Patient was started on IV antibiotic regimen Zosyn, please see medication orders section in the computer. On my assessment, patient denied chest pain, no headache, diaphoresis, dizziness, shortness of breaths, no diarrhea, nausea, vomiting, fever, no chills. Patient was admitted for further evaluation and medical management. PMH-Anxiety, Dementia, Depression, Schizophrenia, Bipolar disorder PSH- Back surgery, LEFT knee surgery Allergy- NKDA Personal History/ Social History- The patient lives at home, denies smoking, alcohol or illicit drugs abuse. Lives in [place] in fasting ROS Cardiovascular- deny acute chest pain or shortness of breath or cough or palpitation Respiratory denies cough or short of breath or wheezing Gastrointestinal- denies any rectal bleeding, nausea or vomiting Neurological- denies acute dysarthria, dysphagia, change in vision Psychiatry- denies depression or SI or HI Skin- denies acute rash or purpura Patient was seen today at bedside Labs and chart reviewed X-ray of the left foot revealed- No acute osseous abnormality. Degenerative changes in the foot. Arterial Doppler negative for any significant stenosis Venous Doppler negative for DVT Objective vital signs Vital Sign Date Time Temp Pulse Resp B/P (MAP) Pulse Ox O2 Delivery O2 Flow Rate FiO2 07/16/25 15:37 67 19 93 Room Air* 0 21 07/16/25 10:00 124/80 (95) 07/16/25 08:00 97.9 97.9 medications Current Medications Medications Dose Ordered Sig/Tiffanie Route Start Time Stop Time Status Last Admin Dose Admin Donepezil HCl 5 mg HS PO 07/16/25 22:00 Atenolol 25 mg BID PO 07/16/25 10:00 07/16/25 09:48 25 MG Duloxetine HCl 60 mg DAILY PO 07/16/25 10:00 07/16/25 09:49 60 MG Sodium Chloride 10 ml Q8HR IV 07/16/25 06:00 07/16/25 14:36 10 ML Acetaminophen/ Hydrocodone Bitart 1 tab Q4HP PRN PO 07/16/25 05:00 Ondansetron HCl 4 mg Q4HP PRN IV 07/16/25 05:00 Docusate Sodium 100 mg BIDPRN PRN PO 07/16/25 05:00 Enoxaparin Sodium 40 mg DAILY SC 07/16/25 10:00 07/16/25 09:49 40 MG Acetaminophen 650 mg Q6HP PRN PO 07/16/25 05:00 Nitroglycerin 0.4 mg Q5MINP PRN SL 07/16/25 05:00 Morphine Sulfate 2 mg Q30M PRN IV 07/16/25 05:00 Ceftriaxone Sodium 50 ml @ 100 mls/hr DAILY@09 IV 07/16/25 09:00 Hold 07/16/25 09:42 100 MLS/HR Examination General examination- awake, not in acute distress HEENT- PEERLA, no acute nasal discharge Cardiovascular- S1-S2 audible, rate and rhythm regular, no murmur Respiratory- CTAB, no wheeze or rhonchi Gastrointestinal-nontender, bowel sound+. Nondistended Musculoskeletal-no acute joint swelling or tenderness or redness Lower extremity- left lower food toes swollen, edematous, erythematous Neurological- cranial nerves intact, no laboratory and microbiology Laboratory Tests 07/16/25 06:09 Test 07/16/25 06:09 Range/Units Serum Glucose 94 74-106 mg/dL Problem List/Assessment/Plan Problem List/Assessment/Plan Assessment and plan # cellulitis of the left foot #possible Sepsis likely due to Cellulitis -continue ceftriaxone as prescribed Monitor vitals -continue current pain management # history of recurrent fall -fall precaution # COPD no exacerbation -nebulization PRN # dementia # bipolar disorder # anxiety # schizophrenia resumed home medical Goals of care, Code status full code ; discussed with >15 minutes PUD prophylaxis: Pantoprazole DVT prophylaxis: Lovenox Plan discussed with Dr. Rivera , nursing staff, Total time spent on patient evaluation, chart review, assessment and plan, discussion discussion >35 minutes Plan discussed with: Patient, Other (RN CAREGIVER) Visit Coding STANDARD RES Billing Provider: YOSEF BACH MD Date of Service if different f: Jul 16, 2025 Common Visit Codes: [id number] INP/OBS CARE(HIGH) BLANK SANDHU RESIDENT Jul 16, 2025 17:02
[2025-07-16] MEDS: DONEPEZIL HYDROCHLORIDE 5 MG TAB PO SCH (21:32)
[2025-07-17] VITALS (8 sets, daily range): BP systolic 134–157; BP diastolic 81–89; PULSE 64–74; RESP 16–20; TEMP 97.8–98.4; O2SAT 94–99
[2025-07-17 07:28] LABS: Hematocrit 39.0 % (36.0-46.0); Hemoglobin 13.0 g/dL (12.2-16.2); Mean Corpuscular Hemoglobin 30.7 pg (28.0-32.0); Mean Corpuscular Volume 92.3 fL (80.0-100.0); Nucleated Red Blood Cells % 0.2 %
[2025-07-17 07:43] LABS: Alanine Aminotransferase 38 U/L (7-40); Albumin 3.8 g/dL (3.2-4.8); Alkaline Phosphatase 105 U/L (46-116); Anion Gap 9 (5-15); BUN/Creatinine Ratio 11.6 (10.0-20.0); Blood Urea Nitrogen 11 mg/dL (9-23); Calcium 8.9 mg/dL (8.7-10.4); Carbon Dioxide 26 mmol/L (20-31); Chloride 105 mmol/L (98-107); Glucose 90 mg/dL (74-106); Potassium 4.5 mmol/L (3.5-5.1); Sodium 140 mmol/L (136-145); Total Protein 6.6 g/dL (5.7-8.2)
[2025-07-17 07:44] LABS: Bilirubin, Total 0.3 mg/dL (0.2-1.0)
[2025-07-17 12:03] LABS: Urine Protein, UAD Negative (Negative)
--- NOTE | 2025-07-17 17:03 | DVHPNRES ---
Progress Note Date Seen: Jul 17, 2025 Resident Creating Document: BLANK SANDHU RESIDENT Medical Necessity Reason Pt with a Central, PICC or Fol: No Subjective Review of Systems patient is a 70-year-old female with past medical history of dementia, depression, schizophrenia, anxiety, and bipolar disorder who presented to [facility] ED with complaint of left foot swelling. Patient reports that she has been experiencing left foot swelling associated with discoloration, toes blisters, getting worse that prompted this visit. Patient was seen and evaluated in the ED with left toes blisters, laboratory data shows WBC 6.4, platelets 295, sodium 139, potassium 3.9, BUN 7, creatinine 0.96, GFR 63, glucose 93, calcium 9.2, blood pressure 131/74, heart rate 78, temperature 97.7 F, O2 saturation 96% on room air. - x-ray revealing degenerative changes in the foot, no acute osseous abnormality. Patient was started on IV antibiotic regimen Zosyn, please see medication orders section in the computer. On my assessment, patient denied chest pain, no headache, diaphoresis, dizziness, shortness of breaths, no diarrhea, nausea, vomiting, fever, no chills. Patient was admitted for further evaluation and medical management. PMH-Anxiety, Dementia, Depression, Schizophrenia, Bipolar disorder PSH- Back surgery, LEFT knee surgery Allergy- NKDA Personal History/ Social History- The patient lives at home, denies smoking, alcohol or illicit drugs abuse. Lives in [place] in fasting ROS Cardiovascular- deny acute chest pain or shortness of breath or cough or palpitation Respiratory denies cough or short of breath or wheezing Gastrointestinal- denies any rectal bleeding, nausea or vomiting Neurological- denies acute dysarthria, dysphagia, change in vision Psychiatry- denies depression or SI or HI Skin- denies acute rash or purpura Patient was seen today at bedside Labs and chart reviewed Urinalysis negative for DVT Discontinue trazodone as patient has a recurrent history of fall it could be from polypharmacy Ordered physical therapy for further evaluation and care Objective vital signs Vital Sign Date Time Temp Pulse Resp B/P (MAP) Pulse Ox O2 Delivery O2 Flow Rate FiO2 07/17/25 13:00 98.3 73 18 157/89 (111) 97 98.3 07/17/25 08:00 Room Air* 0 21 Total Intake and Output 07/16/25 07/16/25 07/17/25 15:00 23:00 07:00 Intake Total 100 ml 440 ml Output Total 500 ml 450 ml Balance 100 ml -500 ml -10 ml medications Current Medications Medications Dose Ordered Sig/Tiffanie Route Start Time Stop Time Status Last Admin Dose Admin Donepezil HCl 5 mg HS PO 07/16/25 22:00 07/16/25 21:32 5 MG Atenolol 25 mg BID PO 07/16/25 10:00 07/17/25 10:23 25 MG Duloxetine HCl 60 mg DAILY PO 07/16/25 10:00 07/17/25 10:23 60 MG Sodium Chloride 10 ml Q8HR IV 07/16/25 06:00 07/17/25 06:14 10 ML Acetaminophen/ Hydrocodone Bitart 1 tab Q4HP PRN PO 07/16/25 05:00 Ondansetron HCl 4 mg Q4HP PRN IV 07/16/25 05:00 Docusate Sodium 100 mg BIDPRN PRN PO 07/16/25 05:00 Enoxaparin Sodium 40 mg DAILY SC 07/16/25 10:00 07/17/25 10:24 40 MG Acetaminophen 650 mg Q6HP PRN PO 07/16/25 05:00 Nitroglycerin 0.4 mg Q5MINP PRN SL 07/16/25 05:00 Morphine Sulfate 2 mg Q30M PRN IV 07/16/25 05:00 Ceftriaxone Sodium 50 ml @ 100 mls/hr DAILY@09 IV 07/16/25 09:00 07/16/25 09:42 100 MLS/HR Patient Own Medication 4 mg DAILY PO 07/17/25 10:00 Examination General examination- awake, not in acute distress HEENT- PEERLA, no acute nasal discharge Cardiovascular- S1-S2 audible, rate and rhythm regular, no murmur Respiratory- CTAB, no wheeze or rhonchi Gastrointestinal-nontender, bowel sound+. Nondistended Musculoskeletal-no acute joint swelling or tenderness or redness Lower extremity- left lower food toes swollen, edematous, erythematous Neurological- cranial nerves intact, no laboratory and microbiology Laboratory Tests 07/17/25 05:18 Test 07/17/25 05:18 Range/Units Serum Glucose 90 74-106 mg/dL Microbiology Date/Time Source Procedure Growth Status 07/16/25 03:12 Blood Blood Culture - Preliminary NO GROWTH AFTER 24 HOURS OF INCUBATION. Resulted Problem List/Assessment/Plan Problem List/Assessment/Plan Assessment and plan # cellulitis of the left foot #possible Sepsis likely due to Cellulitis -continue ceftriaxone as prescribed Monitor vitals -continue current pain management # history of recurrent fall -fall precaution # COPD no exacerbation -nebulization PRN # dementia # bipolar disorder # anxiety # schizophrenia -discontinue trazodone Goals of care, Code status full code ; discussed with >15 minutes PUD prophylaxis: Pantoprazole DVT prophylaxis: Lovenox Plan discussed with Dr. Rivera , nursing staff, Total time spent on patient evaluation, chart review, assessment and plan, discussion discussion >35 minutes Plan discussed with: Patient, Other (RN) My Orders My Orders Orders - BLANK SANDHU Procedure Category Date Status Time (Nf) Brexpiprazole PHA 07/17/25 In Process (Rexulti) 10:00 Mrsa Screen PER 07/17/25 In Process 12:04 Pt Request For Service PT 07/17/25 Logged 10:57 Visit Coding STANDARD RES Billing Provider: YOSEF BACH MD Date of Service if different f: Jul 17, 2025 Common Visit Codes: [id number] INP/OBS CARE(HIGH) BLANK SANDHU Jul 17, 2025 17:03
[2025-07-18 01:00] VITALS: BP 142/83; PULSE 73; RESP 17; TEMP 98; O2SAT 95
[2025-07-18 05:00] VITALS: BP 131/87; PULSE 70; RESP 16; TEMP 97.9; O2SAT 95
[2025-07-18 07:39] LABS: Anion Gap 11 (5-15); Calcium 9.0 mg/dL (8.7-10.4); Carbon Dioxide 24 mmol/L (20-31); Chloride 104 mmol/L (98-107); Potassium 4.2 mmol/L (3.5-5.1); Sodium 139 mmol/L (136-145)
[2025-07-18 07:45] LABS: BUN/Creatinine Ratio 7.9 (10.0-20.0); Glucose 94 mg/dL (74-106); Magnesium 1.9 mg/dL (1.6-2.6)
[2025-07-18 07:46] LABS: Blood Urea Nitrogen 8 mg/dL (9-23)
[2025-07-18 08:00] VITALS: PULSE 70; RESP 18; O2SAT 98
[2025-07-18 09:00] VITALS: BP 130/73; PULSE 70; RESP 18; TEMP 98; O2SAT 93
[2025-07-18] MEDS ORDERED: DOXY100C79 PO (09:55)
[2025-07-18 10:32] VITALS: BP 130/73; PULSE 70; TEMP 36.6
[2025-07-18 13:00] VITALS: BP 141/78; PULSE 63; RESP 18; TEMP 98; O2SAT 95
[2025-07-18] MEDS ORDERED: FAMO-12 PO (19:02)
--- NOTE | 2025-07-18 19:04 | DVHDSRES ---
Discharge Summary Date of Admission Resident Creating Document: BLANK SANDHU RESIDENT Jul 16, 2025 at 05:00 Date of Discharge: Jul 18, 2025 Admitting Diagnosis Left foot cellulitis Labs/Diagnostic Data: Laboratory Results Test 07/18/25 06:41 07/17/25 11:45 07/17/25 05:18 07/16/25 06:09 Sodium Level 139 mmol/L (136-145) Potassium Level 4.2 mmol/L (3.5-5.1) Chloride Level 104 mmol/L (98-107) Carbon Dioxide Level 24 mmol/L (20-31) Anion Gap 11 (5-15) Blood Urea Nitrogen 8 mg/dL (9-23) Creatinine 1.01 mg/dL (0.550-1.02) Glomerular Filtration Rate Calc 60 mL/min (>90) BUN/Creatinine Ratio 7.9 (10.0-20.0) Serum Glucose 94 mg/dL (74-106) Calcium Level 9.0 mg/dL (8.7-10.4) Magnesium Level 1.9 mg/dL (1.6-2.6) Urine Color Light-yellow (Yellow) Urine Clarity Clear (Clear) Urine pH 7.0 (5.0-9.0) Urine Specific Garrison 1.007 (1.001-1.035) Urine Protein Negative (Negative) Urine Ketones Negative (Negative) Urine Blood Negative /uL (Negative) Urine Nitrite Negative (Negative) Urine Bilirubin Negative (Negative) Urine Urobilinogen Normal mg/dL (Negative) Urine Leukocyte Esterase Negative /uL (Negative) Urine RBC 1 /hpf (0 - 4) Urine Microscopic WBC < 1 /HPF (0-5) Urine Squamous Epithelial Cells Few /hpf (<5) Urine Bacteria None seen /hpf (None Seen) Urine Glucose Normal mg/dL (Normal) White Blood Count 6.5 10^3/uL (4.4-10.8) Red Blood Count 4.22 10^6/uL (4.0-5.20) Hemoglobin 13.0 g/dL (12.2-16.2) Hematocrit 39.0 % (36.0-46.0) Mean Corpuscular Volume 92.3 fL (80.0-100.0) Mean Corpuscular Hemoglobin 30.7 pg (28.0-32.0) Mean Corpuscular Hemoglobin Concent 33.3 g/dL (32.0-36.0) Red Cell Distribution Width 14.7 % (11.8-14.3) Platelet Count 310 10^3/uL (140-450) Mean Platelet Volume 8.0 fL (6.9-10.8) Neutrophils (%) (Auto) 63.4 % (37.0-80.0) Lymphocytes (%) (Auto) 22.1 % (10.0-50.0) Monocytes (%) (Auto) 9.6 % (0.0-12.0) Eosinophils (%) (Auto) 3.7 % (0.0-7.0) Basophils (%) (Auto) 1.2 % (0.0-2.0) Neutrophils # (Auto) 4.1 10 ^3/uL (1.6-8.6) Lymphocytes # (Auto) 1.4 10 ^3/uL (0.4-5.4) Monocytes # (Auto) 0.6 10 ^3/uL (0-1.3) Eosinophils # (Auto) 0.2 10 ^3/uL (0-0.8) Basophils # (Auto) 0.1 10 ^3/uL (0-0.2) Nucleated Red Blood Cells 0.2 % Total Bilirubin 0.3 mg/dL (0.2-1.0) Aspartate Amino Transferase (AST) 36 U/L (13-40) Alanine Aminotransferase (ALT) 38 U/L (7-40) Alkaline Phosphatase 105 U/L (46-116) Total Protein 6.6 g/dL (5.7-8.2) Albumin 3.8 g/dL (3.2-4.8) Hemoglobin A1c 6.0 % A1C (<5.7) Vitamin B12 Level 425 pg/mL (211-911) Vitamin D 25-Hydroxy 40.3 ng/mL (30.0-100) Folic Acid 35.84 ng/mL (>5.38) Thyroid Stimulating Hormone (TSH) 2.04 uIU/mL (0.55-4.78) Test 07/16/25 03:12 Lactic Acid Level 1.5 mmol/L (0.4-2.0) Other Laboratory Tests 07/18/25 06:41 07/17/25 05:18 Brief Hx & Hospital Course: patient is a 70-year-old female with past medical history of dementia, depression, schizophrenia, anxiety, and bipolar disorder who presented to [facility] ED with complaint of left foot swelling. Patient reports that she has been experiencing left foot swelling associated with discoloration, toes blisters, getting worse that prompted this visit. Patient was seen and evaluated in the ED with left toes blisters, laboratory data shows WBC 6.4, platelets 295, sodium 139, potassium 3.9, BUN 7, creatinine 0.96, GFR 63, glucose 93, calcium 9.2, blood pressure 131/74, heart rate 78, temperature 97.7 F, O2 saturation 96% on room air. - x-ray revealing degenerative changes in the foot, no acute osseous abnormality. Patient was started on IV antibiotic regimen Zosyn, please see medication orders section in the computer. On my assessment, patient denied chest pain, no headache, diaphoresis, dizziness, shortness of breaths, no diarrhea, nausea, vomiting, fever, no chills. Patient was admitted for further evaluation and medical management. Hospital course-during hospital course patient was treated with ceftriaxone for left foot cellulitis. Patient was also seen by Physical therapy. . Discontinueed trazodone as patient has a recurrent history of fall it could be from polypharmacy. Patient's symptoms improved. The adamant about going to living place today. Patient was discharged with the doxycycline. Patient was advised to follow up at [place] [facility]/PCP/MD at assisted living. All questions answered. Patient was hemodynamically stable on discharge General examination- awake, not in acute distress HEENT- PEERLA, no acute nasal discharge Cardiovascular- S1-S2 audible, rate and rhythm regular, no murmur Respiratory- CTAB, no wheeze or rhonchi Gastrointestinal-nontender, bowel sound+. Nondistended Musculoskeletal-no acute joint swelling or tenderness or redness Lower extremity- left lower food toes swollen, edematous, erythematous improved a lot Neurological- cranial nerves intact, no Assessment # cellulitis of the left foot #possible Sepsis likely due to Cellulitis # history of recurrent fall # COPD no exacerbation # dementia # bipolar disorder # anxiety # schizophrenia # suspected polypharmacy Plan Doxycycline 100 mg p.o. b.i.d. as prescribed Aripiprazole 30 mg p.o. daily Atenolol 25 mg p.o. daily Donepezil 10 mg p.o. daily Duloxetine 60 mg p.o. b.i.d. Famotidine 20 mg daily Plan of care discussed with Dr. Rivera Operations or Procedures [facility] [id number] [place] [id number] Ph: [phone] DIAGNOSTIC IMAGING Diagnostic Imaging Report : [id number] Signed PATIENT: RYAN TOMLINSON JACCT: [id number] UNIT: [id number] : 1955 LOC: OVERFLOW ROOM / BED: [address] [place] [address] AGE / SEX: 70 / F ADM STATUS: ADM IN SERVICE 0440 ORDERING PHYSICIAN: HANS ASTUDILLO MD PROCEDURE(s): LLEAD - Lt Low Ext Art Duplex REASON: swelling ORDER NUMBER(s): [id number], ACCESSION NUMBER(s): [id number] Left Lower Extremity Arterial Duplex CLINICAL HISTORY: swelling COMPARISON: US LT LOWER DVT on DOS: 07/16/25, US BILAT LOWER DVT on DOS: 06/22/25 TECHNIQUE: Duplex Doppler evaluation including color Doppler and spectral/pulsed waveform analysis of the lower extremity arteries was performed. 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 IMPRESSION: No hemodynamically significant stenosis based on peak systolic velocity criteria. Monophasic arterial waveforms are present in the calf suggesting possible underlying peripheral arterial disease. REFERENCE VALUES, [facility] ([facility]) vascular Imaging Lab Criteria: Peak systolic velocity ranges (in cm/sec) are as follows: <150 cm/s - <20 % stenosis 150-200 cm/s - 20-49% stenosis 200-300 cm/s - 50-75% stenosis >300 cm/s -> 75% stenosis ATED BY: THIAGO DANIELS MD DICTATED DATE/TIME: 07/16/25930 SIGNED BY: THIAGO DANIELS MD SIGNED DATE/TIME: 07/16/25930 CC: [place] [address] Ph: [phone] DIAGNOSTIC IMAGING Diagnostic Imaging Report : [id number] Signed PATIENT: RYAN TOMLINSON JACCT: [id number] UNIT: [id number] : 1955 LOC: OVERFLOW ROOM / BED: 1016-ER / A AGE / SEX: 70 / F ADM STATUS: ADM IN SERVICE 0242 ORDERING PHYSICIAN: HANS ASTUDILLO MD PROCEDURE(s): LFOOT - L FOOT 3 VIEW XRAY REASON: swelling infection ORDER NUMBER(s): [id number], ACCESSION NUMBER(s): [id number] EXAM: XY L FOOT 3 VIEW XRAY HISTORY: swelling infection COMPARISON: CR FOOT LEFT 2 VIEW on DOS: 08/08/24 TECHNIQUE: Three views of the left foot were performed. FINDINGS: No acute fracture. No cortical erosion or destruction. There is 2nd, 3rd and 4th metatarsophalangeal joint space narrowing. There are postsurgical changes in the distal tibia and fibula. IMPRESSION: 1. No acute osseous abnormality. 2. Degenerative changes in the foot. ATED BY: JUAN MITCHELL MD DICTATED DATE/TIME: 07/16/25525 SIGNED BY: JUAN MITCHELL MD SIGNED DATE/TIME: 07/16/25525 CC: [address] [id number] Ph: [phone] DIAGNOSTIC IMAGING Diagnostic Imaging Report : [id number] Signed PATIENT: RYAN TOMLINSON JACCT: [id number] UNIT: [id number] : 1955 LOC: OVERFLOW ROOM / BED: 1016-ER / A AGE / SEX: 70 / F ADM STATUS: ADM IN SERVICE 0440 ORDERING PHYSICIAN: HANS ASTUDILLO MD PROCEDURE(s): LLDVT - LT Lower DVT REASON: swelling ORDER NUMBER(s): [id number], ACCESSION NUMBER(s): [id number] CLINICAL HISTORY: swelling TECHNIQUE: Color and duplex doppler imagine of the left lower extremity veins was performed. Vessel compression if possible was also performed. COMPARISON: US BILAT LOWER DVT on DOS: 06/22/25 FINDINGS: Left common femoral vein: Normal compressibility and flow. Left superficial femoral vein: Normal compressibility and flow. Left popliteal vein: Normal compressibility and flow. IMPRESSION: NO SONOGRAPHIC EVIDENCE FOR DEEP VENOUS THROMBOSIS IN THE LEFT LOWER EXTREMITY VEINS. ATED BY: ELDA MATTHEW MD DICTATED DATE/TIME: 07/16/25927 SIGNED BY: ELDA MATTHEW MD SIGNED DATE/TIME: 07/16/25927 CC: Condition at Discharge: Stable Final Diagnosis/Problems List # cellulitis of the left foot #possible Sepsis likely due to Cellulitis # history of recurrent fall # COPD no exacerbation # dementia # bipolar disorder # anxiety # schizophrenia # suspected polypharmacy Discharge Disposition: Assisted Living Facility Discharge Instruct/Medications Diet: Regular Activity: See Comment Activity comment: Patient at fall risk Follow Up/Referral: PCP DC clinic MD at [facility] Medications: As per EMR Scheduled Aripiprazole (Aripiprazole), 30 MG PO DAILY, (Reported) Atenolol (Atenolol), 25 MG PO DAILY, (Reported) Benztropine Mesylate (Benztropine Mesylate), 2 MG PO DAILY, (Reported) Brexpiprazole (Rexulti), 4 MG PO DAILY, (Reported) Diphenoxylate W/ Atropine (Diphenoxylate/Atropine 2.5-0.025 mg), 1 TAB PO DAILY, (Reported) Donepezil Hydrochloride (Donepezil Hcl), 10 MG PO DAILY, (Reported) Doxycycline (Monohydrate) (Doxycycline), 100 MG PO BID Duloxetine HCl (Duloxetine HCl), 60 MG PO BID, (Reported) Famotidine (Famotidine), 20 MG PO DAILY Fluoxetine Hcl (Fluoxetine Hcl), 40 MG PO DAILY, (Reported) Oxybutynin Chloride (Oxybutynin Chloride), 5 MG OR BID, (Reported) Trazodone Hcl (Trazodone Hcl), 1 TAB PO TID, (Reported) Ziprasidone Hydrochloride (Geodon), 20 MG PO BID, (Reported) Discharge Statement: "Patient was advised to return to the ER or call 911 if any headaches, dizziness, shortness of breath, chest pain, abdominal pain, bleeding, fevers, or worsening of medical condition. Patient was counseled about treatment plan, medications, possible side effects, patientverbalized understanding. All questions were answered to the best of my ability. This discharge took greater then 30 minutes in planning, reviewing documentation, counseling the patient, and discussing with other team members." ASSESSMENT ASSESSMENT Assessment # cellulitis of the left foot #possible Sepsis likely due to Cellulitis Visit Coding STANDARD RES Billing Provider: YOSEF BACH MD Date of Service if different f: Jul 18, 2025 Common Visit Codes: [id number]/[id number] DISCH DAY >30min BLANK SANDHU RESIDENT Jul 18, 2025 19:04
[2025-07-23] MEDS ORDERED: AUG875T PO (15:33)
== END 2025-07-18 16:14 | disposition home health service (06) | DRG 872 ==
LOC: ER 01:15 → OVERFLOW 05:00 → WEST WING 15:25
PROVIDERS: ADMIT Student in an Organized Health Care Education/Training Program; ATTEND Student in an Organized Health Care Education/Training Program
DX: A41.9 Sepsis, unspecified organism (principal); L03.116 Cellulitis of left lower limb; F03.93 Unspecified dementia, unspecified severity, with mood disturbance; E66.9 Obesity, unspecified; F20.9 Schizophrenia, unspecified; J44.9 Chronic obstructive pulmonary disease, unspecified; Z68.41 Body mass index [BMI] 40.0-44.9, adult; F31.9 Bipolar disorder, unspecified; F41.9 Anxiety disorder, unspecified; Z91.81 History of falling; Z79.899 Other long term (current) drug therapy
CPT/HCPCS: 36415; 73630; 80048; 80053; 81001; 82306; 82607; 82746; 83036; 83605; 83735; 84443; 85025; 87040; 87081; 93926; 93971; 96365; 97163; 99291; G0378